=== PATIENT | male | born 1955 | race Caucasian/White ===

== ENCOUNTER → 2023-04-12 11:35 | Outpatient (CLI) | payer OTHER, SELFPAY ==
[2023-04-12 12:30] LABS: D Dimer 569 ng/ml (<500)
== END ==
PROVIDERS: Referring Provider Physician Assistant; Visit Provider Physician Assistant
DX: M79.604 Pain in right leg (principal)
CPT/HCPCS: 36415; 85379

== ENCOUNTER → 2023-04-13 09:08 | Outpatient (CLI) | payer OTHER, SELFPAY ==
--- NOTE | 2023-04-13 09:10 | DI.US.S_ITS ---
PROCEDURE: US PERIPH VENOUS LOW EXTREM RT INDICATIONS: Pain in right leg TECHNIQUE: Real-time imaging, as well as color and pulse Doppler interrogation, were performed of the lower extremity deep veins from the inguinal ligament to the popliteal fossa. COMPARISON: None. FINDINGS: The common femoral, femoral and popliteal veins are normally compressible, and free of intraluminal thrombus. Color and pulse Doppler demonstrate normal phasic intraluminal flow. There is normal augmentation response to distal compression maneuver. IMPRESSION: No deep venous thrombosis. Dictated by: Julia Doyle M.D. on 04/13/2023 at 11:35 Approved by: Julia Doyle M.D. on 04/13/2023 at 11:36
== END ==
PROVIDERS: PCP Internal Medicine; Referring Provider Physician Assistant; Visit Provider Physician Assistant
DX: M79.604 Pain in right leg (principal)
CPT/HCPCS: 93971

== ENCOUNTER 2023-04-25 09:27 | Observation (INO) | payer OTHER, SELFPAY ==
[2023-04-25] VITALS (20 sets, daily range): BP systolic 129–174; BP diastolic 70–97; PULSE 72–84; RESP 13–24; TEMP 36.8–37.3; O2SAT 94–97; BMI 31.2
--- NOTE | 2023-04-25 10:00 | DI.CT.S_ITS ---
PROCEDURE: CT ANGIO CHEST PE PROTOCOL INDICATIONS: Right-sided chest pain hemoptysis TECHNIQUE: After the administration of intravenous contrast, 2 mm thick sections acquired from the pulmonary apices to the posterior costophrenic angles. 3-dimensional maximum intensity projection (MIP) coronal and sagittal reformats were then acquired through the thorax. For radiation dose reduction, the following was used: automated exposure control, adjustment of mA and/or kV according to patient size. COMPARISON: [facility], , [facility] VENOUS LOW EXTREM RT, 04/13/2023, 9:22. FINDINGS: Image quality: Excellent. Pulmonary arteries: Pulmonary arteries are prominent in size measuring 3.6 cm. There are intraluminal filling defects involving the right lower lobe main and segmental arteries, and the left lower lobe segmental arteries consistent with pulmonary embolism. Lungs and pleura: Small right pleural effusion. There is right lower lobe infiltrate and consolidation, suspicious for pulmonary infarct. No pleural effusions or pneumothorax. Central and peripheral airways are patent. Mediastinum: Heart is mildly enlarged. No pericardial effusion. Mild coronary artery calcification. No findings to suggest right heart strain. No mediastinal or hilar adenopathy. Thoracic aorta is normal in caliber and enhancement. Esophagus is normal in caliber. Small hiatal hernia. Bones and chest wall: No suspicious bony lesions. Ribs and thoracic spine appear intact throughout. Thyroid gland is unremarkable. No axillary or supraclavicular adenopathy. Abdomen: Moderate hepatic steatosis. IMPRESSION: 1. Bilateral pulmonary emboli. 2. No findings to suggest right heart strain. 3. Right lower lobe infiltrate and consolidation with small right pleural effusion, suspicious for pulmonary infarct. A differential diagnosis is right lower lobe pneumonia. 4. Mild cardiomegaly. 5. Mild coronary artery calcification. 6. Small hiatal hernia. 7. Moderate hepatic steatosis. The result was discussed with Dr. Corral. Dictated by: Kaylee Gilliland M.D. on 04/25/2023 at 12:07 Approved by: Kaylee Gilliland M.D. on 04/25/2023 at 12:14
[2023-04-25 10:02] LABS: Add Manual Diff / Slide Review NO; Basophils Absolute Auto 100 /uL (0-100); Basophils Percent Auto 0.7 % (0-2); Eosinophils Absolute Auto 300 /uL (0-450); Eosinophils Percent Auto 2.3 % (2-4); Hematocrit 40.9 % (41-53); Hemoglobin 14.2 g/dL (13.5-17.5); Lymphocytes Absolute Auto 1800 /uL (1100-4500); Lymphocytes Percent Auto 15.3 % (25-40); Mean Corpuscular HGB Conc 34.6 % (30-36); Mean Corpuscular Hemoglobin 30.1 PG (26-34); Mean Corpuscular Volume 86.8 fL (80-100); Monocytes Absolute Auto 1100 /uL (0-900); Monocytes Percent Auto 9.3 % (3-14); Neutrophils Absolute Auto 8400 /uL (1500-7000); Neutrophils Percent Auto 72.4 % (50-75); Platelet Count 243 X10^3/uL (150-400); Red Blood Cell Count 4.71 X10^6/uL (4.5-5.9); Red Cell Distribution Width 13.3 % (11.6-14.8); White Blood Cell Count 11.6 X10^3/uL (4.5-11.0)
[2023-04-25 10:14] LABS: INR 1.2 (0.9-1.3); Prothrombin Time 13.6 SECONDS (10.1-12.7)
[2023-04-25 10:17] LABS: Lactate (Lactic Acid) 0.9 mmol/L (0.7-2.1)
[2023-04-25 10:19] LABS: Alanine Aminotransferase 65 IU/L (<50); Albumin 4.3 g/dL (3.5-5.0); Albumin Globulin Ratio 1.1 (1.0-2.8); Alkaline Phosphatase 86 U/L (38-126); Aspartate Aminotransferase 46 IU/L (17-59); BUN Creatinine Ratio 22.2 (6-22); Bilirubin Total 1.4 mg/dL (0.2-1.3); Blood Urea Nitrogen 22 mg/dL (9-20); Calcium 9.1 mg/dL (8.4-10.2); Carbon Dioxide 26 mmol/L (22-32); Chloride 100 mmol/L (98-107); Estimated Glomerular Filt Rate > 60 mL/min (>60); Globulin 3.9 g/dL (1.7-4.1); Glucose 97 mg/dL (80-110); HEMOLYSIS 19 (0-50); Potassium 4.1 mmol/L (3.4-5.1); Sodium 135 mmol/L (137-145); Total Protein 8.2 g/dL (6.3-8.2)
--- NOTE | 2023-04-25 10:28 | ED_ITS ---
HPI - Chest Pain General Chief Complaint: Shortness of Breath/Dyspnea Stated Complaint: cough up blood, chest pain, night sweats,sob Time Seen by Provider: 04/25/23 09:46 Source: patient Mode of arrival: Ambulatory Limitations: no limitations History of Present Illness HPI narrative: Patient brought self here for complaints of right-sided chest pain with hemoptysis. Patient returned from [place] after doing cardiac expedition, he usually does not do kayaking. Sunday night he felt right-sided chest discomfort . Had clear sputum with coughing. However it transitioned to pink sputum and this morning had some blood in it. Denies any left-sided chest pain. Had some tingling to the fingers both sides on Sunday which has not returned, it was very brief. Patient denies any back pain. No prior history of blood clots in legs or lungs. No aortic aneurysm or dissection. Patient denies any syncope. Has had fever and chills. He did fly to [place] and did fly back. Unknown sick contacts. Patient in no distress. No history of heart attack strokes or diabetes. Is not on any blood thinners. Denies denies any hematemesis. No abdominal pain. Related Data Previous Rx's Medication Instructions Recorded apixaban 5 mg (74 tabs) tablets in See Rx Instructions PO .COMPLEX 04/25/23 a dose pack (Eliquis DVT-PE Treat #74 ea 30D Start) dabigatran etexilate 150 mg 150 mg PO BID #60 caps 04/25/23 capsule (Pradaxa) rivaroxaban 15 mg (42)-20 mg (9) See Rx Instructions PO .COMPLEX 04/25/23 tablets in a starter pack (Xarelto #51 ea DVT-PE Treatment 30-Day Starter) Allergies Allergy/AdvReac Type Severity Reaction Status Date / Time cyclobenzaprine AdvReac Mild Rash Verified 04/25/23 15:10 meloxicam AdvReac Mild Rash Verified 04/25/23 15:10 Review of Systems Review of Systems Narrative: GENERAL: negative chills, fatigue, malaise, fever, sweats. HEENT: negative sinus pain, ear pain, sore throat RESPIRATORY: negative dyspnea, cough, positive hemoptysis CARDIOVASCULAR: Positive chest pain, negative palpitations GASTROINTESTINAL: negative nausea, vomiting, abdominal pain : negative dysuria, frequency, hematuria MUSCULOSKELETAL: negative muscle or bony pain SKIN: negative rash, skin lesions NEUROLOGIC: negative weakness, numbness ROS Unobtainable: All systems reviewed & are unremarkable except as noted in HPI and below Patient History Social History household members: spouse and children Smoking Status: Unknown if ever smoked Smoking Status: Unknown if ever smoked alcohol intake frequency: holidays/special occasions only Substance Use Type: does not use Exam Narrative Exam Narrative: GENERAL: in no distress, not toxic not dyspneic HEAD: Normocephalic. EYES: Pupils equal round ENT: Mucous membranes moist. NECK: Trachea midline. CARDIOVASCULAR: Regular rate and rhythm without murmurs nontender right chest on palpation but has pain with deep breath on right lower anterior chest RESPIRATORY: Clear to auscultation. Breath sounds equal bilaterally. No wheezes, rales, or rhonchi. GASTROINTESTINAL: Abdomen soft, non-tender EXTREMITIES: No gross deformities. BACK: No flank tenderness. NEURO: AOx4. SKIN: Warm and dry PSYCH: Not anxious, is cooperative Initial Vital Signs Initial Vital Signs: Vital Signs Temperature 98.3 F 04/25/23 09:28 Pulse Rate 84 04/25/23 09:28 Respiratory Rate 13 04/25/23 09:28 Blood Pressure 174/95 H 04/25/23 09:28 Pulse Oximetry 96 04/25/23 09:28 Oxygen Delivery Method Room Air 04/25/23 09:28 Course Orders Ordered: Discontinued Medications Acetaminophen (Acetaminophen 325 Mg Tablet) 650 mg PO Q4H PRN PRN Reason: Fever/Mild Pain (1-3) Last Admin: 04/25/23 20:26 Dose: 650 mg Documented By: Apixaban (Apixaban 5 Mg Tablet) 10 mg PO BID ISSAC Stop: 05/01/23 21:01 Last Admin: 04/26/23 09:15 Dose: 10 mg Documented By: Admin: 04/25/23 20:27 Dose: 10 mg Documented By: Admin: 04/25/23 13:00 Dose: 10 mg Documented By: YEFRI Sodium Chloride (Normal Saline 0.9%) 500 mls @ 1,000 mls/hr IV BOLUS ONE Stop: 04/25/23 10:29 Last Infusion: 04/25/23 12:29 Dose: 0 mls/hr Documented By: YEFRI(2) Admin: 04/25/23 10:30 Dose: 1,000 mls/hr Documented By: YEFRI(2) Melatonin (Melatonin 3 Mg Tablet) 6 mg PO BEDTIME PRN PRN Reason: Insomnia Naloxone HCl (Naloxone 0.4 Mg/Ml Vial) 0.2 mg IV Q2MIN PRN PRN Reason: Opiate Reversal Ondansetron HCl (Ondansetron 4 Mg/2 Ml Inj) 4 mg IV Q8HR PRN PRN Reason: Nausea And Vomiting Oxycodone HCl (Oxycodone Ir 5 Mg Tablet) 5 mg PO Q4HR PRN PRN Reason: Pain, Moderate (4-6) Polyethylene Glycol (Polyethylene Glycol 3350 17 Gm Powd.Pack) 17 gm PO DAILY PRN PRN Reason: Constipation Sennosides (Sennosides 8.6 Mg Tablet) 8.6 mg PO BID PRN PRN Reason: Constipation Vital Signs Vital signs: Vital Signs - 8 hr 04/25/23 09:28 Temperature 98.3 F Pulse Rate 84 Respiratory Rate 13 Blood Pressure 174/95 H Pulse Oximetry 96 Oxygen Delivery Method Room Air MDM - Chest Pain Lab Data 04/26/23 05:05 04/26/23 05:05 Labs: Lab Results 04/25/23 04/25/23 04/25/23 Range/Units 09:53 09:53 09:53 WBC 11.6 H (4.5-11.0) X10^3/uL RBC 4.71 (4.5-5.9) X10^6/uL Hgb 14.2 (13.5-17.5) g/dL Hct 40.9 L (41-53) % MCV 86.8 (80-100) fL MCH 30.1 (26-34) PG MCHC 34.6 (30-36) % RDW 13.3 (11.6-14.8) % Plt Count 243 (150-400) X10^3/uL Neut % (Auto) 72.4 (50-75) % Lymph % (Auto) 15.3 L (25-40) % [place] % (Auto) 9.3 (3-14) % Eos % (Auto) 2.3 (2-4) % Baso % (Auto) 0.7 (0-2) % Neut # (Auto) 8400 H (3801-9132) /uL Lymph # (Auto) 1800 (7329-8101) /uL [place] # (Auto) 1100 H (0-900) /uL Eos # (Auto) 300 (0-450) /uL Baso # (Auto) 100 (0-100) /uL PT 13.6 H (10.1-12.7) SECONDS INR 1.2 (0.9-1.3) Sodium 135 L (137-145) mmol/L Potassium 4.1 (3.4-5.1) mmol/L Chloride 100 (98-107) mmol/L Carbon Dioxide 26 (22-32) mmol/L BUN 22 H (9-20) mg/dL Creatinine 0.99 (0.66-1.25) mg/dL Estimated GFR > 60 (>60) mL/min BUN/Creatinine Ratio 22.2 H (6-22) Glucose 97 (80-110) mg/dL Lactate (0.7-2.1) mmol/L Calcium 9.1 (8.4-10.2) mg/dL Magnesium (1.6-2.3) mg/dL Total Bilirubin 1.4 H (0.2-1.3) mg/dL AST 46 (17-59) IU/L ALT 65 H (<50) IU/L Alkaline Phosphatase 86 (38-126) U/L Troponin I < 0.012 (0.01-0.034) ng/mL NT-Pro-B Natriuret Pep 43 (<125) pg/mL Total Protein 8.2 (6.3-8.2) g/dL Albumin 4.3 (3.5-5.0) g/dL Globulin 3.9 (1.7-4.1) g/dL Albumin/Globulin Ratio 1.1 (1.0-2.8) Procalcitonin (<0.5) ng/mL Chlamy pneumoniae PCR (Not Detect) Adenovirus (PCR) (Not Detect) B. pertussis DNA (PCR) (Not Detecte) B.parapertussis DNA PCR (Not Detecte) Coronavirus OC43 (PCR) (Not Detect) Coronavirus HKU1 (PCR) (Not Detect) Coronavirus 229E (PCR) (Not Detect) SARS-CoV-2 (PCR) (Not Detecte) Coronavirus NL63 (PCR) (Not Detect) Human Metapneumovir PCR (Not Detect) Influenza Type A (PCR) (Not Detect) Influenza Type B (PCR) (Not Detect) M. pneumoniae (PCR) (Not Detect) Parainfluenza 1 (PCR) (Not Detect) Parainfluenza 2 (PCR) (Not Detect) Parainfluenza 3 (PCR) (Not Detect) Parainfluenza 4 (PCR) (Not Detect) RSV (PCR) (Not Detect) Entero/Rhino (PCR) (Not Detect) 04/25/23 04/25/23 04/25/23 Range/Units 09:53 09:53 09:53 WBC (4.5-11.0) X10^3/uL RBC (4.5-5.9) X10^6/uL Hgb (13.5-17.5) g/dL Hct (41-53) % MCV (80-100) fL MCH (26-34) PG MCHC (30-36) % RDW (11.6-14.8) % Plt Count (150-400) X10^3/uL Neut % (Auto) (50-75) % Lymph % (Auto) (25-40) % [place] % (Auto) (3-14) % Eos % (Auto) (2-4) % Baso % (Auto) (0-2) % Neut # (Auto) (7098-0296) /uL Lymph # (Auto) (2188-4243) /uL [place] # (Auto) (0-900) /uL Eos # (Auto) (0-450) /uL Baso # (Auto) (0-100) /uL PT (10.1-12.7) SECONDS INR (0.9-1.3) Sodium (137-145) mmol/L Potassium (3.4-5.1) mmol/L Chloride (98-107) mmol/L Carbon Dioxide (22-32) mmol/L BUN (9-20) mg/dL Creatinine (0.66-1.25) mg/dL Estimated GFR (>60) mL/min BUN/Creatinine Ratio (6-22) Glucose (80-110) mg/dL Lactate 0.9 (0.7-2.1) mmol/L Calcium (8.4-10.2) mg/dL Magnesium 2.4 H (1.6-2.3) mg/dL Total Bilirubin (0.2-1.3) mg/dL AST (17-59) IU/L ALT (<50) IU/L Alkaline Phosphatase (38-126) U/L Troponin I (0.01-0.034) ng/mL NT-Pro-B Natriuret Pep (<125) pg/mL Total Protein (6.3-8.2) g/dL Albumin (3.5-5.0) g/dL Globulin (1.7-4.1) g/dL Albumin/Globulin Ratio (1.0-2.8) Procalcitonin 0.11 (<0.5) ng/mL Chlamy pneumoniae PCR (Not Detect) Adenovirus (PCR) (Not Detect) B. pertussis DNA (PCR) (Not Detecte) B.parapertussis DNA PCR (Not Detecte) Coronavirus OC43 (PCR) (Not Detect) Coronavirus HKU1 (PCR) (Not Detect) Coronavirus 229E (PCR) (Not Detect) SARS-CoV-2 (PCR) (Not Detecte) Coronavirus NL63 (PCR) (Not Detect) Human Metapneumovir PCR (Not Detect) Influenza Type A (PCR) (Not Detect) Influenza Type B (PCR) (Not Detect) M. pneumoniae (PCR) (Not Detect) Parainfluenza 1 (PCR) (Not Detect) Parainfluenza 2 (PCR) (Not Detect) Parainfluenza 3 (PCR) (Not Detect) Parainfluenza 4 (PCR) (Not Detect) RSV (PCR) (Not Detect) Entero/Rhino (PCR) (Not Detect) 04/25/23 Range/Units 09:55 WBC (4.5-11.0) X10^3/uL RBC (4.5-5.9) X10^6/uL Hgb (13.5-17.5) g/dL Hct (41-53) % MCV (80-100) fL MCH (26-34) PG MCHC (30-36) % RDW (11.6-14.8) % Plt Count (150-400) X10^3/uL Neut % (Auto) (50-75) % Lymph % (Auto) (25-40) % [place] % (Auto) (3-14) % Eos % (Auto) (2-4) % Baso % (Auto) (0-2) % Neut # (Auto) (3934-0243) /uL Lymph # (Auto) (5876-6393) /uL [place] # (Auto) (0-900) /uL Eos # (Auto) (0-450) /uL Baso # (Auto) (0-100) /uL PT (10.1-12.7) SECONDS INR (0.9-1.3) Sodium (137-145) mmol/L Potassium (3.4-5.1) mmol/L Chloride (98-107) mmol/L Carbon Dioxide (22-32) mmol/L BUN (9-20) mg/dL Creatinine (0.66-1.25) mg/dL Estimated GFR (>60) mL/min BUN/Creatinine Ratio (6-22) Glucose (80-110) mg/dL Lactate (0.7-2.1) mmol/L Calcium (8.4-10.2) mg/dL Magnesium (1.6-2.3) mg/dL Total Bilirubin (0.2-1.3) mg/dL AST (17-59) IU/L ALT (<50) IU/L Alkaline Phosphatase (38-126) U/L Troponin I (0.01-0.034) ng/mL NT-Pro-B Natriuret Pep (<125) pg/mL Total Protein (6.3-8.2) g/dL Albumin (3.5-5.0) g/dL Globulin (1.7-4.1) g/dL Albumin/Globulin Ratio (1.0-2.8) Procalcitonin (<0.5) ng/mL Chlamy pneumoniae PCR Not detected (Not Detect) Adenovirus (PCR) Not detected (Not Detect) B. pertussis DNA (PCR) Not detected (Not Detecte) B.parapertussis DNA PCR Not detected (Not Detecte) Coronavirus OC43 (PCR) Not detected (Not Detect) Coronavirus HKU1 (PCR) Not detected (Not Detect) Coronavirus 229E (PCR) Not detected (Not Detect) SARS-CoV-2 (PCR) Not detected (Not Detecte) Coronavirus NL63 (PCR) Not detected (Not Detect) Human Metapneumovir PCR Not detected (Not Detect) Influenza Type A (PCR) Not detected (Not Detect) Influenza Type B (PCR) Not detected (Not Detect) M. pneumoniae (PCR) Not detected (Not Detect) Parainfluenza 1 (PCR) Not detected (Not Detect) Parainfluenza 2 (PCR) Not detected (Not Detect) Parainfluenza 3 (PCR) Not detected (Not Detect) Parainfluenza 4 (PCR) Not detected (Not Detect) RSV (PCR) Not detected (Not Detect) Entero/Rhino (PCR) Not detected (Not Detect) Urine Dip Bedside Urine Glucose Negative Bedside Urine Bilirubin - Negative Bedside Urine Ketone + 15 Urine Specific [place] 1.025 Bedside Urine Occult Blood - Negative Bedside Urine pH 6.0 Bedside Urine Protein - Negative Bedside Urine Urobilinogen - Negative Bedside Urine Nitrite - Negative Bedside Urine Leukocytes - Negative Esterase Imaging Data CT scan - chest: Radiologist's Impression: [address] [address] [address] Scan Report Signed Patient: Henry Bee MR#: [id number] : 1955 Acct:[id number] Age/Sex: 67 / M Date of Service: 04/25/23 Loc: ED Accession Number: [id number] ?? Procedure: CT angio chest PE protocol Ordering Provider: Johnathan Corarl MD PROCEDURE:? CT ANGIO CHEST PE PROTOCOL ? INDICATIONS:? Right-sided chest pain hemoptysis ? TECHNIQUE:? After the administration of intravenous contrast, 2 mm thick sections acquired from the pulmonary apices to the posterior costophrenic angles.? 3-dimensional maximum intensity projection (MIP) coronal and sagittal reformats were then acquired through the thorax.? For radiation dose reduction, the following was used:? automated exposure control, adjustment of mA and/or kV according to patient size.? ? COMPARISON:? [facility], , PERIP VENOUS LOW EXTREM RT, 04/13/2023, 9:22. ? FINDINGS:? Image quality:? Excellent.? ? Pulmonary arteries:? Pulmonary arteries are prominent in size measuring 3.6 cm.? There are intraluminal filling defects involving the right lower lobe main and segmental arteries, and the left lower lobe segmental arteries consistent with pulmonary embolism.? ? ? Lungs and pleura:? Small right pleural effusion.? There is right lower lobe infiltrate and consolidation, suspicious for pulmonary infarct.? No pleural effusions or pneumothorax.? Central and peripheral airways are patent.? ? Mediastinum:? Heart is mildly enlarged.? No pericardial effusion.? Mild coronary artery calcification.? No findings to suggest right heart strain.? No mediastinal or hilar adenopathy.? Thoracic aorta is normal in caliber and enhancement.? Esophagus is normal in caliber.? Small hiatal hernia.? ? Bones and chest wall:? No suspicious bony lesions.? Ribs and thoracic spine appear intact throughout.? Thyroid gland is unremarkable.? No axillary or supraclavicular adenopathy.? ? Abdomen:? Moderate hepatic steatosis.? ? IMPRESSION:? ? 1. Bilateral pulmonary emboli.? 2. No findings to suggest right heart strain. 3. Right lower lobe infiltrate and consolidation with small right pleural effusion, suspicious for pulmonary infarct.? A differential diagnosis is right lower lobe pneumonia. 4. Mild cardiomegaly.? 5. Mild coronary artery calcification. 6. Small hiatal hernia. 7. Moderate hepatic steatosis.? ? The result was discussed with Dr. Corral. ? Dictated by: Kaylee Gilliland M.D. on 04/25/2023 at 12:07 ? ? Approved by: Kaylee Gilliland M.D. on 04/25/2023 at 12:14 ? [facility] Narrative Medical decision making narrative: Patient brought self here for complaints of right-sided chest pain with hemoptysis. Patient returned from [place] after doing cardiac expedition, he usually does not do kayaking. Sunday night he felt right-sided chest discomfort. Had clear sputum with coughing. However it transitioned to pink sputum and this morning had some blood in it. Denies any left-sided chest pain. Had some tingling to the fingers both sides on Sunday which has not returned, it was very brief. Patient denies any back pain. No prior history of blood clots in legs or lungs. No aortic aneurysm or dissection. Patient denies any syncope. Has had fever and chills. He did fly to [place] and did fly back. Unknown sick contacts. Patient in no distress. No history of heart attack strokes or diabetes. Is not on any blood thinners. Denies denies any hematemesis. No abdominal pain. After history and exam CBC CMP troponin EKG CT chest PT PTT normal saline viral swab [facility] CC: Hemoptysis Complicating co-morbidities: Recent travel Data collected from: Patient Medical records reviewed: No previous visits for this complaint Differential considered: Includes but not limited to pulmonary embolism pneumonia bronchitis viral infection aortic dissection aneurysm neoplasm Exam documented above, pertinent findings include: Pleuritic chest pain with deep breath on the right Lab Test results independently reviewed as above. Pertinent findings: WBC 11.6 hemoglobin 14.2 hematocrit 40.9 platelets of 243 INR 1.2 D-dimer 569 sodium 135 BUN 22 creatinine 0.99 Independently reviewed EKG normal EKG normal sinus rhythm rate 76 Imaging studies independently reviewed: CT PE protocol shows bilateral pulmonary embolism Consultations: 12:[address] Grijalva, hospitalist, he will admit patient and start anticoagulation Treatments: Normal saline Re-evaluations: 12:00 p.m.. Reviewed with patient results. He does agree admission for treatment for pulmonary embolism. He now states that he does recall going to [place] beginning of this month. It was an [address] He did have ultrasound of the leg recently with no DVT seen. Currently no chest pain. Discussion: Appropriate for admission for bilateral pulmonary embolisms. Patient agrees with treatment plan. Spoke with hospitalist agrees for admission Diagnosis: Bilateral pulmonary embolism Discharge Plan Departure Patient Disposition: Admitted as Observation Clinical Impression: Pulmonary embolism Admit Date/Time: 04/25/23 12:28 Admit Provider: Keaton Grijalva
[2023-04-25 10:30] LABS: NT-proBNP (BNP-Adult 18+) 43 pg/mL (<125); Troponin I < 0.012 ng/mL (0.01-0.034)
[2023-04-25] MEDS: SODIUM CHLORIDE 0.9% 500 ML 1000 ML IV (10:30)
[2023-04-25 10:57] LABS: Adenovirus Not Detected (Not Detect); B. parapertussis Not Detected (Not Detecte); Bordetella pertussis Not Detected (Not Detecte); Chlamydophila pneumoniae Not Detected (Not Detect); Coronavirus 229E Not Detected (Not Detect); Coronavirus HKU1 Not Detected (Not Detect); Coronavirus NL 63 Not Detected (Not Detect); Coronavirus OC43 Not Detected (Not Detect); Human Metapneumovirus Not Detected (Not Detect); Human Rhinovirus/Enterovirus Not Detected (Not Detect); Influenza A Not Detected (Not Detect); Influenza B Not Detected (Not Detect); Mycoplasma pneumoniae Not Detected (Not Detect); Parainfluenza Virus 1 Not Detected (Not Detect); Parainfluenza Virus 2 Not Detected (Not Detect); Parainfluenza Virus 3 Not Detected (Not Detect); Parainfluenza Virus 4 Not Detected (Not Detect); Respiratory Syncytial Virus Not Detected (Not Detect); SARS- CoV-2 Not Detected (Not Detecte)
--- NOTE | 2023-04-25 12:40 | DI.ECHO.S_ITS ---
[facility]---------+ [facility] +---------+ : : [address] [place] : : : : [id number] : : : : Phone: [phone] Echocardiogram Report + + :Name: DINA RICHARD Study Date: 04/26/2023 Height: 75 in : :[facility] ReadingLocation: Weight: 250 lb : : Gender: Male BSA: 2.4 m2 : :: 1955 Age: 67 yrs BP: 174/95 mmHg: :Reason For Study: BILATERAL PE, LOOK FOR RIGHT HEART STRAIN : :Ordering Physician: AIDA, : :MARIAA Colón Performed By: Khushbu Ward : :Referring: MARIAA PARRA : + + Interpretation Summary The ejection fraction is estimated to be 55-60%. Diastolic parameters suggest probable normal left ventricular diastolic function and normal filling pressures. The right ventricle is normal in size and function. No significant valvular abnormalities. Pulmonary artery pressures cannot be estimated because of the lack of a measurable TR jet velocity. Procedure: A two-dimensional transthoracic echocardiogram with color flow and Doppler was performed. The study quality was technically adequate. There is no prior echocardiogram noted for this patient. The patient was in sinus rhythm with heart rates between 69-76 bpm during the exam. Left Ventricle: The left ventricle is normal in size and wall thickness. A false chord is noted (normal variant). The ejection fraction is estimated to be 55-60%. Diastolic parameters suggest probable normal left ventricular diastolic function and normal filling pressures. Right Ventricle: The right ventricle is normal in size and function. Atria: The left atrial size is normal. Right atrial size is normal. There is no Doppler evidence for an interatrial shunt. Mitral Valve: The mitral valve is normal in structure and function. There is trace mitral regurgitation. Aortic Valve: The aortic valve is trileaflet. The aortic valve opens well. There is no aortic valve stenosis. No aortic regurgitation is present. Tricuspid Valve: The tricuspid valve is normal in structure and function. There is trace tricuspid regurgitation. Pulmonary artery pressures cannot be estimated because of the lack of a measurable TR jet velocity. Pulmonic Valve: The pulmonic valve is not well visualized. There is no pulmonic valvular regurgitation. Great Vessels: The aortic root is normal size. The dimensions of the ascending aorta are normal. The IVC is of normal diameter and collapses greater than 50% with a sniff. This suggests a low right atrial pressure of 3 mm Hg. Pericardium/ Pleura There is no pericardial effusion. There is no pleural effusion. MMode/2D Measurements & Calculations LVIDd: 5.1 cm LVOT diam: 2.3 cm LVIDs: 3.7 cm Ao root diam: 3.7 cm FS: 26.7 % asc Aorta Diam: 3.4 cm IVSd: 1.0 cm LVPWd: 1.0 cm LV apple. diameter/BSA (cm/m^2): 2.1 LV sys. diameter/BSA (cm/m^2): 1.5 LA A2 area: 18.5 cm2 RA long axis: 5.1 cm LA A4 area: 17.4 cm2 RA area: 16.1 cm2 LA length (vol): 5.1 cm RA vol: 43.0 ml LA vol: 53.9 ml RA : 17.8 ml/m2 LA vol index: 22.3 ml/m2 IVC diam: 1.4 cm RVD1 (basal): 3.0 cm RVD2 (mid): 2.5 cm TAPSE: 2.7 cm Doppler Measurements & Calculations Ao V2 max: 128.3 cm/sec LVOT Max Kip: 105.7 cm/sec Ao V2 mean: 94.8 cm/sec LV V1 max P.5 mmHg Ao max P.6 mmHg LV V1 VTI: 21.8 cm Ao mean P.9 mmHg TATY(I,D): 3.0 cm2 Ao V2 VTI: 29.6 cm TATY(V,D): 3.4 cm2 sev ratio: 0.74 TATY indexed to BSA (cm^2/m^2): 1.2 MV E max kip: 60.2 cm/sec PA V2 max: 92.2 cm/sec MV A max kip: 77.1 cm/sec PA V2 mean: 67.9 cm/sec MV E/A: 0.78 PA mean P.0 mmHg Med Peak E' Kip: 8.1 cm/sec PA pr(Accel): 31.0 mmHg E/E' med: 7.5 Lat Peak E' Kip: 11.3 cm/sec E/E' lat: 5.3 E/e' average: 6.4 MV dec time: 0.24 sec SV(LVOT): 89.2 ml Reading Physician:08:55 AM
[2023-04-25] MEDS: APIXABAN 5 MG TABLET 10 MG PO ×2 (13:00→20:27)
[2023-04-25 13:06] LABS: Magnesium 2.4 mg/dL (1.6-2.3)
--- NOTE | 2023-04-25 13:09 | P.HP_ITS ---
History of Present Illness History of Present Illness Date Patient Seen: 04/25/23 Time Patient Seen: 14:47 Chief complaint: cough up blood, chest pain, night sweats,sob Narrative: Henry Bee is a 67-year-old male with PMH of HLD, right foot frostbite s/p toe amputations who presents with pleuritic chest pain and hemoptysis. Patient states about 2 weeks ago he took an [address] to [place], [place] and shortly after developed some sharp pain in his right ankle so was placed on prednisone for presumed gout attack. The pain then worsened into his right calf so he went to the walk-in clinic and had a dimer checked which was elevated so a DVT US was done which was normal. His pain improved and eventually went away. He then took a long plane trip to [place] to do a kayaking expedition and noticed he had profound SOB. He returned home and then developed right-sided pleuritic CP worse with deep breaths. He had some frothy pink sputum so came to the ED. In the ED patient's CTA chest showed bilateral PE with pulm infarct in right lower lobe adjacent to patient's pleuritic CP. PESI score of 0. Not requiring supp O2. He currently states he doesn't feel SOB at rest, but more with exertion. He still has pleuritic CP with deep breaths. [facility] Social History Smoking Status: Unknown if ever smoked Meds Home Medications and Allergies Allergies Allergy/AdvReac Type Severity Reaction Status Date / Time cyclobenzaprine AdvReac Mild Rash Verified 04/25/23 15:10 meloxicam AdvReac Mild Rash Verified 04/25/23 15:10 Review of Systems Review of Systems Narrative: All other systems reviewed with the patient and are negative unless otherwise stated. Exam Vital Signs (past 8 hours): - 04/25/23 09:28 Temperature 98.3 F Pulse Rate 84 Respiratory Rate 13 Blood Pressure 174/95 H Pulse Oximetry 96 Oxygen Delivery Method Room Air Oxygen Delivery Method Room Air Narrative Exam Narrative: GEN: no acute distress HEENT: moist mucous membranes, PERRL NECK: trachea midline, no JVD CV: regular rate and rhythm, no murmurs PULM: clear bilaterally ABD: soft, nontender, nondistended, no organomegaly EXT: warm and well perfused with no edema, R foot with missing toes NEURO: awake, alert, oriented, no focal deficits Objective Labs 04/25/23 09:53 04/25/23 09:53 Labs: Laboratory Results - last 24 hr 04/25/23 04/25/23 04/25/23 09:53 09:53 09:53 WBC 11.6 H RBC 4.71 Hgb 14.2 Hct 40.9 L MCV 86.8 MCH 30.1 MCHC 34.6 RDW 13.3 Plt Count 243 Neut % (Auto) 72.4 Lymph % (Auto) 15.3 L Collin % (Auto) 9.3 Eos % (Auto) 2.3 Baso % (Auto) 0.7 Neut # (Auto) 8400 H Lymph # (Auto) 1800 [place]lin # (Auto) 1100 H Eos # (Auto) 300 Baso # (Auto) 100 PT 13.6 H INR 1.2 Sodium 135 L Potassium 4.1 Chloride 100 Carbon Dioxide 26 BUN 22 H Creatinine 0.99 Estimated GFR > 60 BUN/Creatinine Ratio 22.2 H Glucose 97 Lactate Calcium 9.1 Total Bilirubin 1.4 H AST 46 ALT 65 H Alkaline Phosphatase 86 Troponin I < 0.012 NT-Pro-B Natriuret Pep 43 Total Protein 8.2 Albumin 4.3 Globulin 3.9 Albumin/Globulin Ratio 1.1 Chlamy pneumoniae PCR Adenovirus (PCR) B. pertussis DNA (PCR) B.parapertussis DNA PCR Coronavirus OC43 (PCR) Coronavirus HKU1 (PCR) Coronavirus 229E (PCR) SARS-CoV-2 (PCR) Coronavirus NL63 (PCR) Human Metapneumovir PCR Influenza Type A (PCR) Influenza Type B (PCR) M. pneumoniae (PCR) Parainfluenza 1 (PCR) Parainfluenza 2 (PCR) Parainfluenza 3 (PCR) Parainfluenza 4 (PCR) RSV (PCR) Entero/Rhino (PCR) 04/25/23 04/25/23 09:53 09:55 WBC RBC Hgb Hct MCV MCH MCHC RDW Plt Count Neut % (Auto) Lymph % (Auto) Collin % (Auto) Eos % (Auto) Baso % (Auto) Neut # (Auto) Lymph # (Auto) Collin # (Auto) Eos # (Auto) Baso # (Auto) PT INR Sodium Potassium Chloride Carbon Dioxide BUN Creatinine Estimated GFR BUN/Creatinine Ratio Glucose Lactate 0.9 Calcium Total Bilirubin AST ALT Alkaline Phosphatase Troponin I NT-Pro-B Natriuret Pep Total Protein Albumin Globulin Albumin/Globulin Ratio Chlamy pneumoniae PCR Not detected Adenovirus (PCR) Not detected B. pertussis DNA (PCR) Not detected B.parapertussis DNA PCR Not detected Coronavirus OC43 (PCR) Not detected Coronavirus HKU1 (PCR) Not detected Coronavirus 229E (PCR) Not detected SARS-CoV-2 (PCR) Not detected Coronavirus NL63 (PCR) Not detected Human Metapneumovir PCR Not detected Influenza Type A (PCR) Not detected Influenza Type B (PCR) Not detected M. pneumoniae (PCR) Not detected Parainfluenza 1 (PCR) Not detected Parainfluenza 2 (PCR) Not detected Parainfluenza 3 (PCR) Not detected Parainfluenza 4 (PCR) Not detected RSV (PCR) Not detected Entero/Rhino (PCR) Not detected Assessment & Plan Assessment & Plan narrative: # acute provoked bilateral pulmonary embolism -CTA chest with clots in bilateral lower lobes, no R heart strain -likely developed during recent long plane ride -start eliquis 10mg BID x1 week, then 5mg BID for 6 months -check echo -q4h pulse ox checks # pleuritic chest pain -due to pulm infarct, trop normal -oxy PRN # possible pneumonia vs pulmonary infarct -WBC 11.6, afebrile and without productive cough -check procal -monitor for signs of infection # elevated BP without diagnosis of HTN -BP of 174/95 in ED -monitor and consider treatment of HTN if persistently elevated # HLD, elevated LFT -check lipid panel -hold home statin with elevated ALT of 65, possibly due to hepatotoxicity from statin -f/u with PCP to recheck liver enzymes and discuss statin cessation # recent possible gout attack -had severe right ankle pain which improved with po prednisone -check uric acid Code status is full code. DVT prophylaxis with Eliquis. Proxy is Lety. I have reviewed home meds and used all available resources to reconcile the home meds. This patient will be admitted as observation and will require less than 2 midnights of hospital time to treat pulmonary embolism.
[2023-04-25 13:24] LABS: Procalcitonin 0.11 ng/mL (<0.5)
[2023-04-25] MEDS: ACETAMINOPHEN 325 MG TABLET 650 MG PO (20:26)
[2023-04-26 00:01] VITALS: BP 132/90; PULSE 70; RESP 18; TEMP 36.6; O2SAT 94
[2023-04-26 01:00] VITALS: O2SAT 94
[2023-04-26 04:10] VITALS: BP 145/83; PULSE 87; RESP 16; TEMP 36.9; O2SAT 94
[2023-04-26 05:00] VITALS: O2SAT 94
[2023-04-26 06:06] LABS: Add Manual Diff / Slide Review NO; Basophils Absolute Auto 100 /uL (0-100); Basophils Percent Auto 0.7 % (0-2); Eosinophils Absolute Auto 400 /uL (0-450); Eosinophils Percent Auto 3.5 % (2-4); Hematocrit 38.8 % (41-53); Hemoglobin 13.4 g/dL (13.5-17.5); Lymphocytes Absolute Auto 1800 /uL (1100-4500); Lymphocytes Percent Auto 17.2 % (25-40); Mean Corpuscular HGB Conc 34.5 % (30-36); Mean Corpuscular Hemoglobin 29.7 PG (26-34); Mean Corpuscular Volume 86.2 fL (80-100); Monocytes Absolute Auto 800 /uL (0-900); Neutrophils Absolute Auto 7200 /uL (1500-7000); Neutrophils Percent Auto 70.6 % (50-75); Platelet Count 251 X10^3/uL (150-400); Red Cell Distribution Width 13.4 % (11.6-14.8); White Blood Cell Count 10.2 X10^3/uL (4.5-11.0)
[2023-04-26 06:09] LABS: Uric Acid 8.3 mg/dL (3.5-8.5)
[2023-04-26 06:11] LABS: Cholesterol 233 mg/dL (140-199); HDL Cholesterol 40 mg/dL (40-60); LDL Cholesterol Calculated 168 mg/dL (<100); Triglycerides 127 mg/dL (35-150)
[2023-04-26 06:12] LABS: BUN Creatinine Ratio 18.8 (6-22); Blood Urea Nitrogen 16 mg/dL (9-20); Calcium 8.4 mg/dL (8.4-10.2); Carbon Dioxide 22 mmol/L (22-32); Chloride 99 mmol/L (98-107); Estimated Glomerular Filt Rate > 60 mL/min (>60); Glucose 100 mg/dL (80-110); HEMOLYSIS < 15 (0-50); Potassium 3.9 mmol/L (3.4-5.1); Sodium 130 mmol/L (137-145)
[2023-04-26 08:00] VITALS: BP 117/78; PULSE 67; RESP 16; TEMP 37.1; O2SAT 93
[2023-04-26 09:00] VITALS: O2SAT 97
[2023-04-26] MEDS: APIXABAN 5 MG TABLET 10 MG PO (09:15)
--- NOTE | 2023-04-26 13:09 | PM.DS.1 ---
History of Present Illness History of Present Illness Date Patient Seen: 04/26/23 Time Patient Seen: 13:09 Date of Onset of Symptoms: 04/24/23 Chief complaint: cough up blood, chest pain, night sweats,sob Narrative: From H&P: Hnery Bee is a 67-year-old male with PMH of HLD, right foot frostbite s/p toe amputations who presents with pleuritic chest pain and hemoptysis.? Patient states about 2 weeks ago he took an [address] to [place], [place] and shortly after developed some sharp pain in his right ankle so was placed on prednisone for presumed gout attack.? The pain then worsened into his right calf so he went to the walk-in clinic and had a dimer checked which was elevated so a DVT US was done which was normal. His pain improved and eventually went away. He then took a long plane trip to [place] to do a kayaking expedition and noticed he had profound SOB. He returned home and then developed right-sided pleuritic CP worse with deep breaths. He had some frothy pink sputum so came to the ED. In the ED patient's CTA chest showed bilateral PE with pulm infarct in right lower lobe adjacent to patient's pleuritic CP. PESI score of 0. Not requiring supp O2. He currently states he doesn't feel SOB at rest, but more with exertion. He still has pleuritic CP with deep breaths. Discharge Providers Provider Date of admission: 04/25/23 12:28 Discharge Date: 04/26/23 Primary care physician: Renard Clarke MD Consults: None Discharge provider: Dominik Rodriguez MD Summary Hospital Course Discharge Diagnosis: 1. Pulmonary embolism. Hospital Course: Patient admitted for observation of respiratory status and pain with acute pulmonary embolism. He did well over night and remained off O2. He had good pain control and a reassuring ECHO. He was stable for discharge, Status at Discharge Cognitive/behavioral status at discharge: oriented Functional status at discharge: independent ambulation Overall status at discharge: patient is back to baseline Time Spent with Patient Time spent: Greater than 30 minutes Exam Vital Signs (past 8 hours): - 04/26/23 08:00 04/26/23 09:00 Temperature 98.8 F Pulse Rate 67 Respiratory Rate 16 Blood Pressure 117/78 Pulse Oximetry 93 97 Oxygen Delivery Method Room Air Oxygen Flow Rate 0 0 Oxygen Delivery Method Room Air Oxygen Flow Rate 0 Narrative Exam Narrative: NAD Normal speech Lungs are clear Heart is regular Abdomen is soft No leg edema Objective ECG Impression: NSR Imaging CT scan - chest: Radiologist's impression: 1. Bilateral pulmonary emboli.? 2. No findings to suggest right heart strain. 3. Right lower lobe infiltrate and consolidation with small right pleural effusion, suspicious for pulmonary infarct.? A differential diagnosis is right lower lobe pneumonia. 4. Mild cardiomegaly.? 5. Mild coronary artery calcification. 6. Small hiatal hernia. 7. Moderate hepatic steatosis.? Echo: Radiologist's impression: The ejection fraction is estimated to be 55-60%. Diastolic parameters suggest probable normal left ventricular diastolic function and normal filling pressures. The right ventricle is normal in size and function. No significant valvular abnormalities. Pulmonary artery pressures cannot be estimated because of the lack of a measurable TR jet velocity. Venous US: Radiologist's impression: IMPRESSION:? No deep venous thrombosis. Labs 04/26/23 05:05 04/26/23 05:05 Labs: Laboratory Results - last 24 hr 04/25/23 04/25/23 04/26/23 09:53 09:53 05:05 WBC RBC Hgb Hct MCV MCH MCHC RDW Plt Count Neut % (Auto) Lymph % (Auto) [place] % (Auto) Eos % (Auto) Baso % (Auto) Neut # (Auto) Lymph # (Auto) [place] # (Auto) Eos # (Auto) Baso # (Auto) Sodium Potassium Chloride Carbon Dioxide BUN Creatinine Estimated GFR BUN/Creatinine Ratio Glucose Uric Acid 8.3 Calcium Magnesium 2.4 H Triglycerides Cholesterol LDL Cholesterol, Calc HDL Cholesterol Procalcitonin 0.11 04/26/23 04/26/23 04/26/23 05:05 05:05 05:05 WBC 10.2 RBC 4.50 Hgb 13.4 L Hct 38.8 L MCV 86.2 MCH 29.7 MCHC 34.5 RDW 13.4 Plt Count 251 Neut % (Auto) 70.6 Lymph % (Auto) 17.2 L [place] % (Auto) 8.0 Eos % (Auto) 3.5 Baso % (Auto) 0.7 Neut # (Auto) 7200 H Lymph # (Auto) 1800 [place] # (Auto) 800 Eos # (Auto) 400 Baso # (Auto) 100 Sodium 130 L Potassium 3.9 Chloride 99 Carbon Dioxide 22 BUN 16 Creatinine 0.85 Estimated GFR > 60 BUN/Creatinine Ratio 18.8 Glucose 100 Uric Acid Calcium 8.4 Magnesium Triglycerides 127 Cholesterol 233 H LDL Cholesterol, Calc 168 H HDL Cholesterol 40 Procalcitonin [facility] Social History household members: spouse and children Smoking Status: Unknown if ever smoked Discharge Assessment & Plan Assessment and Plan Assessment: 1. Pulmonary embolism, POAI. 2. Pulmonary infarct, POAI. 3. HLD, POAS 4. Gout, POA. Plan of Treatment: Discharge with Apixiban 10 BID 1 week and 5 BID thereafter. PCP within 1 week Discharge Plan Discharge Plan Patient Disposition: Home Provider Discharge Comment: Stable for discharge Discharge orders & Medications Prescriptions: New Eliquis DVT-PE Treat 30D Start 5 mg (74 tabs) tablets,dose pack See Rx Instructions .ROUTE .COMPLEX Qty: 74 0RF Rx Instructions: orally per package directions Xarelto DVT-PE Treat 30d Start 15 mg (42)- 20 mg (9) tablets,dose pack See Rx Instructions .ROUTE .COMPLEX Qty: 51 0RF Rx Instructions: take one-15 mg tablet twice daily for 21 days, then one-20 mg tablet once daily; must take with meal/food dabigatran etexilate [Pradaxa] 150 mg capsule 150 mg PO BID Qty: 60 0RF Medication counseling provided by Pharmacist: No Follow up/Referrals: Renard Clarke MD [Primary Care Provider] - 05/03/23 2:30 pm (Appt: 05/03 @ 2:[address] Clarke please arrive 15 min prior to scheduled appointment time) Diet/Activity/Treatments Diet: Diet as Tolerated Diet comment: Regular Activity: Ad pio. Skin/Wound/Dressing Care Report to your healthcare provider any signs of infection, such as:: increased pain Visit Report/Discharge Packet Stand Alone Forms: Patient Portal/API Discharge Data Primary Care Provider: Renard Clarke V Attending Provider: Keaton Grijalva Admit Date/Time: 04/25/23 12:28 Discharges patient from system. Discharge Date/Time: 04/26/23 11:48 Quality MIPS - DC The patient has current or prior documentation of left ventricular ejection fraction (LVEF) less than or equal to 40%, or moderate or severely depressed left ventricular systolic function.: No
--- NOTE | 2023-04-26 14:17 | CM.DANOTE ---
Patient is a 67 yo male who was admitted on 04/25/23 for Bilateral PE and possible pneumonia. Pt has [facility] for insurance and his PCP is Dr. Renard Clarke. EMR was reviewed. Per MD, pt with a hx of mondragon bite and toe amputations and admitted for PEs and r/o pneumonia. Per MD, Pt now medically stable to discharge home today with no needs and no identified barriers to discharge. Per RN, pt independent in room and no concerns noted at this time. Pt resides in [place] with his spouse and is very active and independent at baseline and travels regularly and participates in outdoor expeditions. Pt has no hx of HH or SNF and does not anticipate any needs at d/c. Plan: Patient to d/c home today via spouse POV and no further SW needs at this time. [facility] Discharge Planning/Care Management Advanced directive, confirm from FAMILY Start: 04/25/23 15:08 Freq: Q24H Status: Discharge Protocol: Document 04/25/23 15:08 LEILANI (Rec: 04/25/23 15:09 AKAdelina [id number]) Advance Directive, confirm on record Time 15:09 Person contacted patient to get e copy of form Copy received No
== END 2023-04-26 11:48 | disposition home or self-care (01) ==
LOC: ED 09:46 → AC 12:29
PROVIDERS: Admitting Provider Student in an Organized Health Care Education/Training Program; Emergency Provider Emergency Medicine; PCP Internal Medicine; Referring Provider Emergency Medicine; Visit Provider Student in an Organized Health Care Education/Training Program
DX: I26.99 Other pulmonary embolism without acute cor pulmonale (principal); R03.0 Elevated blood-pressure reading, without diagnosis of hypertension; E78.5 Hyperlipidemia, unspecified; Z20.822 Contact with and (suspected) exposure to COVID-19
CPT/HCPCS: 36415; 71275; 80048; 80053; 80061; 81003; 83605; 83735; 83880; 84145; 84484; 84550; 85025; 85610; 87633; 93005; 93306; 96360; 96361; 99284; G0378; Q9967

== ENCOUNTER → 2023-05-03 10:45 | Outpatient (CLI) | payer OTHER, SELFPAY ==
[2023-04-25 14:56] VITALS: BMI 31.2
[2023-05-03 13:01] LABS: TSH w/ Reflex to FT4 3.07 uIU/mL (0.47-4.68)
[2023-05-03 15:14] LABS: Prostate Specific Antigen 0.684 ng/mL (0.10-4.00)
[2023-05-06 09:59] LABS: Cardiolipin Ab IgG <9 GPL U/mL (0-14); Cardiolipin Ab IgM <9 MPL U/mL (0-12)
[2023-05-06 15:26] LABS: ANA Screen, IFA Negative (.)
[2023-05-07 01:06] LABS: Dil Russell Viper Venom Conf 1.1 ratio (0.8-1.2); Dilute Russell Viper Venom 78.6 sec (0.0-47.0); Dilute Russell Viper Venom Mix 58.4 sec (0.0-40.4); Hexagonal Phase Phospholipid 5 sec (0-11); Lupus Reflex Interpretation Comment: (.); PTT- LA Mix 41.4 sec (0.0-40.5); PTT-LA 45.2 sec (0.0-43.5)
== END ==
PROVIDERS: PCP Internal Medicine; Referring Provider Internal Medicine; Visit Provider Internal Medicine
DX: N40.0 Benign prostatic hyperplasia without lower urinary tract symptoms (principal); E78.2 Mixed hyperlipidemia; I26.99 Other pulmonary embolism without acute cor pulmonale; Z79.01 Long term (current) use of anticoagulants
CPT/HCPCS: 36415; 81240; 81241; 84153; 84443; 85598; 85613; 86038

== ENCOUNTER → 2023-05-04 12:21 | Outpatient (CLI) | payer OTHER, SELFPAY ==
[2023-04-25 14:56] VITALS: BMI 31.2
--- NOTE | 2023-05-04 12:22 | DI.US.S_ITS ---
PROCEDURE: US PERIPH VENOUS LOW EXTREM BI INDICATIONS: PULMONARY EMBOLISM TECHNIQUE: Real-time imaging, as well as color and pulse Doppler interrogation, were performed of the deep veins of both legs from the inguinal ligament to the popliteal fossa, with documentation of the visualized calf veins. COMPARISON: [facility], CT, CT ANGIO CHEST PE PROTOCOL, 04/25/2023, 11:16. FINDINGS: Right: The common femoral, femoral, popliteal, and the visualized calf veins are normally compressible, and free of intraluminal thrombus. Color and pulse Doppler demonstrate normal phasic intravascular flow. There is normal augmentation response to distal compression maneuver. Left: The common femoral, femoral, popliteal, and the visualized calf veins are normally compressible, and free of intraluminal thrombus. Color and pulse Doppler demonstrate normal phasic intravascular flow. There is normal augmentation response to distal compression maneuver. Note is made of venous stasis within both lower extremities, with spontaneous contrast. IMPRESSION: No findings of deep venous thrombosis in either lower extremity. However, venous stasis can be seen within both lower extremities. Dictated by: Edwar Hunt M.D. on 05/04/2023 at 12:12 Approved by: Edwar Hunt M.D. on 05/04/2023 at 12:13
== END ==
PROVIDERS: PCP Internal Medicine; Referring Provider Internal Medicine; Visit Provider Internal Medicine
DX: I26.99 Other pulmonary embolism without acute cor pulmonale (principal); I87.8 Other specified disorders of veins
CPT/HCPCS: 93970

== ENCOUNTER 2023-05-19 05:26 | Emergency (ER) | payer OTHER, SELFPAY ==
[2023-04-25 14:56] VITALS: BMI 31.2
[2023-05-19 05:32] VITALS: BP 119/71; PULSE 60; RESP 18; TEMP 36.2; O2SAT 97; BMI 29.0
--- NOTE | 2023-05-19 05:58 | ED_ITS ---
HPI - Dental/Oral General Chief complaint: Dental/Oral Stated complaint: swollen lip Time Seen by Provider: 05/19/23 05:38 Source: patient Mode of arrival: Ambulatory History of Present Illness HPI Narrative: 67-year-old male with history pulmonary embolisms on anticoagulation presents for evaluation of a swollen, slightly tender upper lip. He states that he is absent of other symptoms such as dizziness, weakness or lightheadedness, has no other facial swelling, difficulty swallowing or breathing, no rash and no GI symptoms. He had a dental procedure earlier in the day, there was no extraction, only that repair of a broken filling and preparation for crown, he an injection and a dental instrument was pulled firmly against the corner of his lip which caused him some discomfort. He is taken no new medications, does not take any lisinopril or other antihypertensives Related Data Previous Rx's Medication Instructions Recorded apixaban 5 mg tablet (Eliquis) 5 mg PO BID #180 tabs 05/03/23 rosuvastatin 10 mg tablet 10 mg PO DAILY #90 tabs 05/03/23 Allergies Allergy/AdvReac Type Severity Reaction Status Date / Time cyclobenzaprine AdvReac Mild Rash Verified 05/03/23 08:41 meloxicam AdvReac Mild Rash Verified 05/03/23 08:41 Review of Systems Review of Systems Narrative: GENERAL: Denies chills, fatigue, malaise, fever, sweats. HEENT: See HPI RESPIRATORY: See HPI. CARDIOVASCULAR: Denies chest pain, palpitations, orthopnea, edema, GASTROINTESTINAL: Denies nausea, vomiting, abdominal pain, diarrhea, constipation, melena. : Denies dysuria, frequency, incontinence, hematuria, urinary retention. MUSCULOSKELETAL: denies weakness, joint pain, or bony pain SKIN: Denies rash, skin lesions, or other NEUROLOGIC: Denies weakness, headache, numbness, change in speech, confusion, seizures, incoordination. PSYCHIATRIC: No concerning psychosocial issues. 12 point review of systems is negative except for those stated above Patient History Medical History Chronic anticoagulation Coronary artery calcification Frostbite of both feet Mixed hyperlipidemia Overweight Surgical History History of transmetatarsal amputation of right foot Social History details: , retired [employer], 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 Well-developed patient, in mild distress. HEAD: Atraumatic. Normocephalic. EYES: Pupils equal round and reactive. Extraocular motions intact. No scleral icterus. No injection or drainage. ENT: Upper lip swollen, most notably on the left side where his dental work was and has reached about [address], not tense, mildly tender, no other swelling, no tongue or throat involvement. No obvious other intraoral swelling, bleeding or other abnormality Nose without bleeding, purulent drainage. Throat without erythema, tonsillar hypertrophy or exudate. Airway patent. NECK: Trachea midline. Non tender CARDIOVASCULAR: Regular rate and rhythm without murmurs, gallops, or rubs. RESPIRATORY: Clear to auscultation. Breath sounds equal bilaterally. No wheezes, rales, or rhonchi. GASTROINTESTINAL: Abdomen soft, non-tender, nondistended. EXTREMITIES: No edema or joint tenderness. BACK: Nontender without deformity or crepitance. No flank tenderness. NEURO: AOx3. SKIN: No rash or erythema of visible areas Initial Vital Signs Initial Vital Signs: Vital Signs Temperature 97.2 F L 05/19/23 05:32 Pulse Rate 60 05/19/23 05:32 Respiratory Rate 18 05/19/23 05:32 Blood Pressure 119/71 05/19/23 05:32 Pulse Oximetry 97 05/19/23 05:32 Oxygen Delivery Method Room Air 05/19/23 05:32 Course Orders Ordered: Discontinued Medications Diphenhydramine HCl (Diphenhydramine 25 Mg Tablet) 50 mg PO NOW ONE Stop: 05/19/23 05:56 Last Admin: 05/19/23 06:01 Dose: 50 mg Documented By: AP Vital Signs Vital signs: Vital Signs - 8 hr 05/19/23 05:32 Temperature 97.2 F L Pulse Rate 60 Respiratory Rate 18 Blood Pressure 119/71 Pulse Oximetry 97 Oxygen Delivery Method Room Air MDM - Dental/Oral MDM Narrative Medical decision making narrative: [67] year old patient presents with swollen lip after dental procedure Multiple etiologies for patient's symptoms considered including, but not limited to: [Swelling from relative traumatic injury on anticoagulants versus angioedema versus allergic reaction versus infectious versus other] Prior Charts reviewed in our EMR Primary Historian: patient History and physical exam are very reassuring. Multiple diagnoses considered as noted above. Most likely scenario is traumatic injury with slightly more than increased swelling due to use of anticoagulants. No widespread symptoms that would be expected with allergy anaphylaxis. No medication history to suggest angioedema. Temporal relationship between does not procedure pain and swelling seems to paint the most accurate scenario. Patient's symptoms improved over duration of stay with above-stated therapies. Findings and discharge diagnosis discussed with patient/family followed by verb alization of understanding Return precautions discussed with patient/family whom verbalize understanding of diagnosis and plan Discharge Plan Departure Patient Disposition: Home Clinical Impression: Swelling of upper lip Activity Restrictions/Additional Instructions: *You have been diagnosed with [upper lip swelling following dental procedure. As we discussed your history and physical exam are reassuring and this is most likely a consequence of mild local trauma from dental instruments, however as we discussed there was the potential of an allergic-type scenario that may benefit from the use of antihistamines] *What to do: *Please continue to take your regular medications as directed. [ ] New medication prescriptions sent to your pharmacy: [ ] [ ] New medication written as a paper prescription [ ] No new medications given *Please follow up with your primary care provider in 2-3 days, call for an appointment. Let them know you were seen in the Emergency Department and that we ask that you be seen in follow up. We will electronically transmit a record of today's note if your PCP is in our system *If you do not have a primary care provider please contact the [facility] Resource line at [phone]. They will ask some questions about your medical history and help get you set up with a doctor in the community. *Return to Emergency Department if you should have any new, worsening or concerning symptoms, such as worsening swelling, involvement of tongue or throat, trouble breathing or other concerning symptoms Prescriptions: No Action Eliquis 5 mg tablet 5 mg PO BID Qty: 180 1RF rosuvastatin 10 mg tablet 10 mg PO DAILY Qty: 90 3RF Referrals: Renard Clarke MD [Primary Care Provider] - Stand Alone Forms: Patient Portal/API
[2023-05-19] MEDS: diphenhydrAMINE 25 MG TABLET 50 MG PO (06:01)
== END 2023-05-19 06:06 | disposition home or self-care (01) ==
PROVIDERS: Emergency Provider Emergency Medicine; PCP Internal Medicine
DX: R22.0 Localized swelling, mass and lump, head (principal)
CPT/HCPCS: 99282; 99283

== ENCOUNTER 2023-12-18 12:48 | Emergency (ER) | payer OTHER, SELFPAY ==
[2023-04-25 14:56] VITALS: BMI 31.2
[2023-12-18] VITALS (16 sets, daily range): BP systolic 120–160; BP diastolic 61–86; PULSE 50–66; RESP 12–22; TEMP 36.6; O2SAT 93–98; BMI 29.3
--- NOTE | 2023-12-18 13:02 | DI.RAD.S_ITS ---
PROCEDURE: XR CHEST 1V INDICATIONS: Shortness of breath TECHNIQUE: One view of the chest was acquired. COMPARISON: CT, CT ANGIO CHEST PE PROTOCOL, 04/25/2023, 11:16. FINDINGS: Surgical changes and devices: None. Lungs and pleura: Lungs are clear. No pleural effusions or pneumothorax. Mediastinum: Mediastinal contours appear normal. Heart size is normal. Bones and chest wall: No suspicious bony lesions. Overlying soft tissues appear unremarkable. IMPRESSION: No acute cardiopulmonary abnormality is seen. Dictated by: Staci Nava MD, PhD on 12/18/2023 at 13:41 Approved by: Staci Nava MD, PhD on 12/18/2023 at 13:43
[2023-12-18 13:18] LABS: Add Manual Diff / Slide Review NO; Basophils Absolute Auto 100 /uL (0-100); Basophils Percent Auto 0.8 % (0-2); Eosinophils Absolute Auto 200 /uL (0-450); Eosinophils Percent Auto 2.2 % (2-4); Hematocrit 44.3 % (41-53); Hemoglobin 15.1 g/dL (13.5-17.5); Lymphocytes Absolute Auto 2300 /uL (1100-4500); Mean Corpuscular HGB Conc 34.2 % (30-36); Mean Corpuscular Hemoglobin 30.2 PG (26-34); Mean Corpuscular Volume 88.3 fL (80-100); Monocytes Absolute Auto 400 /uL (0-900); Monocytes Percent Auto 6.1 % (3-14); Neutrophils Absolute Auto 4400 /uL (1500-7000); Neutrophils Percent Auto 59.9 % (50-75); Platelet Count 230 X10^3/uL (150-400); Red Blood Cell Count 5.02 X10^6/uL (4.5-5.9); Red Cell Distribution Width 13.7 % (11.6-14.8); White Blood Cell Count 7.3 X10^3/uL (4.5-11.0)
[2023-12-18 13:31] LABS: INR 1.2 (0.9-1.3); Prothrombin Time 13.3 SECONDS (9.4-12.5)
[2023-12-18 13:37] LABS: Alanine Aminotransferase 25 IU/L (<50); Albumin 4.8 g/dL (3.5-5.0); Albumin Globulin Ratio 1.2 (1.0-2.8); Alkaline Phosphatase 45 U/L (38-126); Aspartate Aminotransferase 36 IU/L (17-59); BUN Creatinine Ratio 19.6 (6-22); Bilirubin Total 1.1 mg/dL (0.2-1.3); Blood Urea Nitrogen 22 mg/dL (9-20); Calcium 10.1 mg/dL (8.4-10.2); Carbon Dioxide 27 mmol/L (22-32); Chloride 106 mmol/L (98-107); Estimated Glomerular Filt Rate > 60 mL/min (>60); Globulin 3.9 g/dL (1.7-4.1); Glucose 68 mg/dL (80-110); HEMOLYSIS < 15 (0-50); Potassium 4.5 mmol/L (3.4-5.1); Sodium 140 mmol/L (137-145); Total Protein 8.7 g/dL (6.3-8.2)
--- NOTE | 2023-12-18 13:39 | ED_ITS ---
HPI - SOB/Dyspnea General Chief Complaint: Shortness of Breath/Dyspnea Stated Complaint: possible blood clot L knee Time Seen by Provider: 12/18/23 13:17 Source: patient Mode of arrival: Ambulatory Limitations: no limitations History of Present Illness HPI Narrative: This is a 68-year-old male with history of prior pulmonary emboli with infarct in March of 2023 on Eliquis daily and dyslipidemia. Patient states he had similar pain in his right ankle had a negative DVT but positive dimer then developed chest pain, hemoptysis and shortness of breath and had a pulmonary emboli with a long with infarct after multiple long distance flights. Patient's since then has been taking his Eliquis regularly. Does note he has been running deception past 8 part regularly developed some left knee pain but does not recall any trauma twist or injuries, he has not had any swelling redness and states pain feels very similar to when he had his ankle pain and developed his blood clot. Patient states he felt short of breath today, he has not had any chest pain or pressure, no hemoptysis, no fevers or chills, no syncope. No nausea vomiting diarrhea constipation, no urinary symptoms. He did take some ibuprofen yesterday. Had minimal improvement. Has had amputation of his toes on his right foot secondary to frostbite. Has not allergy to meloxicam gets a rash but can tolerate other NSAIDs without issue as well as cyclobenzaprine. No tobacco, occasional alcohol, no recreational drugs. Dr. Clarke is his primary care physician. Related Data Previous Rx's Medication Instructions Recorded apixaban 5 mg tablet (Eliquis) 5 mg PO BID #180 tabs 07/31/23 rosuvastatin 10 mg tablet 10 mg PO DAILY #90 tabs 07/31/23 diclofenac sodium 1 % topical gel 2 g topical QID PRN pain #100 grams 12/18/23 (Aleve (diclofenac)) Allergies Allergy/AdvReac Type Severity Reaction Status Date / Time cyclobenzaprine AdvReac Mild Rash Verified 12/18/23 12:44 meloxicam AdvReac Mild Rash Verified 12/18/23 12:44 Review of Systems Review of Systems ROS Unobtainable: All systems reviewed & are unremarkable except as noted in HPI and below Patient History Medical History Impaired fasting glucose Coronary artery calcification Overweight Mixed hyperlipidemia Frostbite of both feet Chronic anticoagulation Surgical History History of transmetatarsal amputation of right foot Social History details: , retired [employer], 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 HEENT: Head normocephalic, atraumatic, EOMI, pupils reactive, face symmetric, moist mucous membranes NECK: Supple, full range of motion CARDIOVASCULAR: Regular rate and rhythm without murmurs, rubs or gallops. No JVD. No edema bilateral lower extremity RESPIRATORY: Breath sounds equal bilaterally, no wheezes rales or rhonchi. No tachypnea or accessory muscle use. ABDOMEN: Soft, nontender. Normoactive bowel sounds all 4 quadrants. No guarding or rebound, rigidity, no mass : No CVA tenderness EXTREMITIES: Normal range of motion, no clubbing or edema. Neurovascularly intact. 2+ pulses bilateral lower extremities. No bony tenderness on examination. No effusion. Anterior, posterior drawer and valgus varus testing are negative in terms of laxity but patient does have discomfort. Also has some discomfort with compression test. NEUROLOGICAL: Cranial nerves II through XII grossly intact. Moving all extremities SKIN: Warm, dry, no petechiae, no rashes or lesions. Initial Vital Signs Initial Vital Signs: Vital Signs Temperature 97.8 F 12/18/23 12:52 Pulse Rate 65 12/18/23 12:52 Respiratory Rate 20 12/18/23 12:52 Blood Pressure 149/73 H 12/18/23 12:52 Pulse Oximetry 98 12/18/23 12:52 Oxygen Delivery Method Room Air 12/18/23 12:52 Course Orders Ordered: ED Orders 12/18/23 13:02 XR chest 1V Stat Measure peak expiratory flow ONCE RT Consult Eval and Treat NOW 12/18/23 13:10 Complete Blood Count AUTO DIFF Stat Comprehensive Metabolic Panel Stat Lactate (Lactic Acid) Stat NT-proBNP (BNP-Adult 18+) Stat Prothrombin Time INR Stat Troponin I Stat 12/18/23 13:13 EKG-12 Lead Stat 12/18/23 13:58 CT angio chest PE protocol Stat US periph venous low extrem lt Stat 12/18/23 15:14 Trop I [Troponin I] Stat 12/18/23 16:33 XR knee LT 3V Stat Discontinued Medications Ketorolac Tromethamine (Ketorolac 30 Mg/Ml Vial) 15 mg IV NOW ONE Stop: 12/18/23 14:00 Last Admin: 12/18/23 14:06 Dose: 15 mg Documented By: KASI Vital Signs Vital signs: Vital Signs - 8 hr 12/18/23 12:52 12/18/23 13:02 12/18/23 13:03 Temperature 97.8 F Pulse Rate 65 58 L Respiratory Rate 20 Blood Pressure 149/73 H 160/76 H Pulse Oximetry 98 96 Oxygen Delivery Method Room Air 12/18/23 13:03 12/18/23 13:30 12/18/23 13:31 Temperature Pulse Rate 60 59 L 60 Respiratory Rate 14 20 Blood Pressure Pulse Oximetry 96 93 94 Oxygen Delivery Method 12/18/23 13:31 12/18/23 14:00 12/18/23 14:00 Temperature Pulse Rate 63 Respiratory Rate 12 Blood Pressure 120/64 134/77 Pulse Oximetry 95 Oxygen Delivery Method 12/18/23 14:59 12/18/23 15:00 12/18/23 15:01 Temperature Pulse Rate 58 L 66 60 Respiratory Rate 19 21 Blood Pressure Pulse Oximetry 96 96 96 Oxygen Delivery Method 12/18/23 15:01 12/18/23 15:30 12/18/23 15:30 Temperature Pulse Rate 59 L Respiratory Rate 22 Blood Pressure 122/61 127/66 Pulse Oximetry 95 Oxygen Delivery Method 12/18/23 16:00 12/18/23 16:00 12/18/23 16:30 Temperature Pulse Rate 65 55 L Respiratory Rate 16 12 Blood Pressure 157/86 H Pulse Oximetry 96 94 Oxygen Delivery Method 12/18/23 16:31 12/18/23 16:31 12/18/23 17:00 Temperature Pulse Rate 56 L 50 L Respiratory Rate 21 14 Blood Pressure 141/67 H Pulse Oximetry 95 94 Oxygen Delivery Method 12/18/23 17:01 12/18/23 17:12/18/23 17:30 Temperature Pulse Rate 55 L 53 L Respiratory Rate 19 18 Blood Pressure 139/61 Pulse Oximetry 95 94 Oxygen Delivery Method 12/18/23 17:30 Temperature Pulse Rate Respiratory Rate Blood Pressure 152/80 H Pulse Oximetry Oxygen Delivery Method MDM - SOB/Dyspnea Lab Data 12/18/23 13:10 12/18/23 13:10 Labs: Lab Results 12/18/23 12/18/23 Range/Units 13:10 15:14 WBC 7.3 (4.5-11.0) X10^3/uL RBC 5.02 (4.5-5.9) X10^6/uL Hgb 15.1 (13.5-17.5) g/dL Hct 44.3 (41-53) % MCV 88.3 (80-100) fL MCH 30.2 (26-34) PG MCHC 34.2 (30-36) % RDW 13.7 (11.6-14.8) % Plt Count 230 (150-400) X10^3/uL Neut % (Auto) 59.9 (50-75) % Lymph % (Auto) 31.0 (25-40) % [place] % (Auto) 6.1 (3-14) % Eos % (Auto) 2.2 (2-4) % Baso % (Auto) 0.8 (0-2) % Neut # (Auto) 4400 (4343-7397) /uL Lymph # (Auto) 2300 (9668-6607) /uL [place] # (Auto) 400 (0-900) /uL Eos # (Auto) 200 (0-450) /uL Baso # (Auto) 100 (0-100) /uL PT 13.3 H (9.4-12.5) SECONDS INR 1.2 (0.9-1.3) Sodium 140 (137-145) mmol/L Potassium 4.5 (3.4-5.1) mmol/L Chloride 106 (98-107) mmol/L Carbon Dioxide 27 (22-32) mmol/L BUN 22 H (9-20) mg/dL Creatinine 1.12 (0.66-1.25) mg/dL Estimated GFR > 60 (>60) mL/min BUN/Creatinine Ratio 19.6 (6-22) Glucose 68 L (80-110) mg/dL Lactate 1.0 (0.7-2.1) mmol/L Calcium 10.1 (8.4-10.2) mg/dL Total Bilirubin 1.1 (0.2-1.3) mg/dL AST 36 (17-59) IU/L ALT 25 (<50) IU/L Alkaline Phosphatase 45 (38-126) U/L Troponin I < 0.012 < 0.012 (0.01-0.034) ng/mL NT-Pro-B Natriuret Pep 49 (<125) pg/mL Total Protein 8.7 H (6.3-8.2) g/dL Albumin 4.8 (3.5-5.0) g/dL Globulin 3.9 (1.7-4.1) g/dL Albumin/Globulin Ratio 1.2 (1.0-2.8) Imaging Data Chest x-ray: Radiologist's Impression: [address] [address] XRay Report Signed Patient: Henry Bee MR#: [id number] : 1955 Acct:[id number] Age/Sex: 68 / M Date of Service: 12/18/23 Loc: ED Accession Number: [id number] Procedure: XR chest 1V Ordering Provider: Ruchi Alejandro D.O. PROCEDURE: XR CHEST 1V INDICATIONS: Shortness of breath TECHNIQUE: One view of the chest was acquired. COMPARISON: CT, CT ANGIO CHEST PE PROTOCOL, 04/25/2023, 11:16. FINDINGS: Surgical changes and devices: None. Lungs and pleura: Lungs are clear. No pleural effusions or pneumothorax. Mediastinum: Mediastinal contours appear normal. Heart size is normal. Bones and chest wall: No suspicious bony lesions. Overlying soft tissues appear unremarkable. IMPRESSION: No acute cardiopulmonary abnormality is seen. Dictated by: Staci Nava MD, PhD on 12/18/2023 at 13:41 Approved by: Staci Nava MD, PhD on 12/18/2023 at 13:43 US - DVT: Radiologist's Impression: Close Vascular Ultrasound (Signed) Leilani Yusuf - 12/18/23 Chest X-Ray (Signed) Staci Nava - 12/18/23 Vascular Ultrasound (Signed) Edwar Hunt 05/04/23 Echocardiogram Ultrasound (Signed) Rosetta Segura - 04/25/23 Telemetry Strips 04/25/23 Chest CTA (Signed) DarshanaKaylee - 04/25/23 Vascular Ultrasound (Signed) YaniraJulia - 04/13/23 Launch?Image [address] [address] Ultrasound Report Signed Patient: Henry Bee MR#: [id number] : 1955 Acct:[id number] Age/Sex: 68 / M Date of Service: 12/18/23 Loc: ED Accession Number: [id number] Procedure: US periph venous low extrem lt Ordering Provider: Ruchi Alejandro D.O. PROCEDURE: US PERIPH VENOUS LOW EXTREM LT INDICATIONS: POSTERIOR KNEE PAIN. HISTORY OF DEEP VEIN THROMBOSIS TECHNIQUE: Real-time imaging, as well as color and pulse Doppler interrogation, were performed of the lower extremity deep veins from the inguinal ligament to the popliteal fossa, with documentation of the visualized calf veins. COMPARISON: None. FINDINGS: The common femoral, femoral, popliteal, and the visualized calf veins are normally compressible, and free of intraluminal thrombus. Color and pulse Doppler demonstrate normal phasic intraluminal flow. There is normal augmentation response to distal compression maneuver. IMPRESSION: No findings of lower extremity deep venous thrombosis. Dictated by: Leilani Yusuf M.D. on 12/18/2023 at 14:34 Approved by: Leilani Yusuf M.D. on 12/18/2023 at 14:34 CT scan - chest: Radiologist's Impression: [address] [address] XRay Report Signed Patient: Haja Vazquez MR#: [id number] : 05/03/2008 Acct:[id number] Age/Sex: 15 / M Date of Service: 12/18/23 Loc: ED Accession Number: [id number] Procedure: XR ankle LT min 3V Ordering Provider: Emilia Judge P.A-C PROCEDURE: XR ANKLE LT MIN 3V INDICATIONS: injury/twist TECHNIQUE: 3 views of the ankle were acquired. COMPARISON: None. FINDINGS: Bones: There is a possible tiny bone fragment adjacent to the lateral malleolus and lateral talar process, best seen on frontal view. No displaced fracture or dislocation elsewhere. Soft tissues: No suspicious calcifications. IMPRESSION: Tiny age-indeterminate bone fragment, possibly from prior avulsion injury, adjacent to the lateral malleolus and lateral talar process. Correlate with location of injury. Dictated by: Selvin Ortiz M.D. on 12/18/2023 at 15:18 Approved by: Selvin Ortiz M.D. on 12/18/2023 at 15:19 Extremity x-ray #1: Radiologist's Impression: [address] [address] XRay Report Signed Patient: Henry Bee MR#: [id number] : 1955 Acct:[id number] Age/Sex: 68 / M Date of Service: 12/18/23 Loc: ED Accession Number: [id number] Procedure: XR knee LT 3V Ordering Provider: Ruchi Alejandro D.O. PROCEDURE: XR KNEE LT 3V INDICATIONS: knee pain TECHNIQUE: 3 views of the knee were acquired. COMPARISON: None. FINDINGS: Bones: No fractures or dislocations. No suspicious bony lesions. Mild degenerative joint disease. Soft tissues: Trace joint effusion. No suspicious soft tissue calcifications. IMPRESSION: 1. No acute bony abnormality or significant effusion. 2. Mild degenerative joint disease. 3. Trace knee joint effusion. Dictated by: Kaylee Gilliland M.D. on 12/18/2023 at 17:03 Approved by: Kaylee Gilliland M.D. on 12/18/2023 at 17:05 ECG Data Attestation: I personally reviewed and interpreted this ECG as follows: Interpretation: Rate of 61 WI 164 QRS of 90 QTC of 422. No acute ST elevation depression noted patient has prior from 04/25/[address] changes. MDM Narrative Medical decision making narrative: 68-year-old male comes in with concern for possible blood clot, patient has had prior blood clots in the past he is anticoagulated on apixaban states no missed doses. Had prior episode with right ankle pain had DVT ultrasound which was negative but then developed chest pain, hemoptysis and shortness of breath after multiple flights and was found to have pulmonary emboli and infarcts, had his legs ultrasound and again afterwards and never found DVT in his lower extremities. Patient is quite active but developed some left knee pain could potentially be mechanical he runs regularly on trails but also had some increased shortness of breath and states pain feels very similar to when he developed his blood clot in the past. Plan for labs, EKG, DVT ultrasound, CT angio was obtained. Labs show white count of 7.3 hemoglobin of 15 platelets of 230, sodium 140 potassium of 4 5, chloride of 106 with a CO2 27, BUN 22 creatinine 1.12, glucose was 68, INR is 1.2 with calcium 10.1, negative LFTs. Negative troponin and a BNP of 49. Chest xray is negative EKG sinus rhythm no acute changes no dynamic changes from prior in 2022. CT angio chest negative for PE, scarring or atelectasis/scarring without dense airspace disease or pleural effusion.? Patient is noted to have mildly patulous esophagus with small amount of fluid usually related to dysmotility or free efflux consider endoscopic correlation if needed no pathologic adenopathy.? Borderline cardiomegaly.? Questionable irregular liver contour maybe seen with chronic liver disease. DVT ultrasound is negative for bilateral lower extremities. Repeat troponin on repeat. Patient's workup does not show any significant change or concerning changes for his shortness breath. Does have some right knee pain, negative DVT ultrasound. Patient has some minimal discomfort with joint laxity testing weightbear does note that pain started after running and then he sat for a prolonged period of time and then stood it was much more painful. X-ray shows a trace effusion, no fracture degenerative changes. Discussed with patient should probably avoid NSAIDs because he is on apixaban but could use a topical gel such as Voltaren. Discharge Plan Departure Patient Disposition: Home Clinical Impression: Acute knee pain, Dyspnea, Effusion of knee joint, left Instructions: DI for Knee Effusion Activity Restrictions/Additional Instructions: Follow-up with your physician for recheck. Your x-ray imaging does show a trace knee effusion and some degenerative changes. Continue your home medications as prescribed. You may take Tylenol up to a 1000 mg every 6 hours as needed for pain. Use topical cream to your left knee as prescribed. Prescription sent to [facility] in [place] Please return for new or worsening symptoms increasing chest pain or shortness of breath, lightheadedness or passing out, coughing up blood, new swelling in her extremities, numbness tingling or weakness or other new or concerning changes. Prescriptions: New diclofenac sodium [Aleve (diclofenac)] 1 % gel 2 g topical QID PRN (Reason: pain) Qty: 100 0RF Rx Instructions: apply to single elbow, wrist or hand; for hand includes palm/fingers/back of hand No Action rosuvastatin 10 mg tablet 10 mg PO DAILY Qty: 90 3RF Eliquis 5 mg tablet 5 mg PO BID Qty: 180 3RF Referrals: Renard Clarke MD [Primary Care Provider] - Stand Alone Forms: Patient Portal/API
[2023-12-18 13:48] LABS: NT-proBNP (BNP-Adult 18+) 49 pg/mL (<125); Troponin I < 0.012 ng/mL (0.01-0.034)
--- NOTE | 2023-12-18 13:58 | DI.US.S_ITS ---
PROCEDURE: US PERIPH VENOUS LOW EXTREM LT INDICATIONS: POSTERIOR KNEE PAIN. HISTORY OF DEEP VEIN THROMBOSIS TECHNIQUE: Real-time imaging, as well as color and pulse Doppler interrogation, were performed of the lower extremity deep veins from the inguinal ligament to the popliteal fossa, with documentation of the visualized calf veins. COMPARISON: None. FINDINGS: The common femoral, femoral, popliteal, and the visualized calf veins are normally compressible, and free of intraluminal thrombus. Color and pulse Doppler demonstrate normal phasic intraluminal flow. There is normal augmentation response to distal compression maneuver. IMPRESSION: No findings of lower extremity deep venous thrombosis. Dictated by: Leilani Yusuf M.D. on 12/18/2023 at 14:34 Approved by: Leilani Yusuf M.D. on 12/18/2023 at 14:34
--- NOTE | 2023-12-18 13:58 | DI.CT.S_ITS ---
PROCEDURE: CT ANGIO CHEST PE PROTOCOL INDICATIONS: sob, left knee pain, hx pe with infarct March 2023 TECHNIQUE: After the administration of intravenous contrast, 2 mm thick sections acquired from the pulmonary apices to the posterior costophrenic angles. 3-dimensional maximum intensity projection (MIP) coronal and sagittal reformats were then acquired through the thorax. For radiation dose reduction, the following was used: automated exposure control, adjustment of mA and/or kV according to patient size. COMPARISON: [facility], CT, CT ANGIO CHEST PE PROTOCOL, 04/25/2023, 11:16. FINDINGS: Image quality: Diagnostic Lungs and pleura: Scattered scarring and atelectasis. No dense airspace disease or pleural effusions. Mediastinum, heart, and esophagus: No acute pulmonary embolism. Mildly patulous esophagus with small amount of fluid, usually related to dysmotility or reflux, consider endoscopic correlation if needed. No pathologic lymphadenopathy by size criteria Borderline cardiomegaly. Chest wall and thyroid: Unremarkable Upper abdomen: No gross abnormality on these arterial phase images. Questionably irregular liver contour may be seen with chronic liver disease. Bones: Degenerative changes. IMPRESSION: No acute pulmonary embolism. Scattered areas of scarring/atelectasis, without dense airspace disease or pleural effusion. Consider future imaging surveillance to assess for resolution. Other findings above. Dictated by: Selvin Ortiz M.D. on 12/18/2023 at 15:12 Approved by: Selvin Ortiz M.D. on 12/18/2023 at 15:17
[2023-12-18] MEDS: KETOROLAC 30 MG/ML VIAL 15 MG IV (14:06)
[2023-12-18 15:52] LABS: Troponin I < 0.012 ng/mL (0.01-0.034)
--- NOTE | 2023-12-18 16:33 | DI.RAD.S_ITS ---
PROCEDURE: XR KNEE LT 3V INDICATIONS: knee pain TECHNIQUE: 3 views of the knee were acquired. COMPARISON: None. FINDINGS: Bones: No fractures or dislocations. No suspicious bony lesions. Mild degenerative joint disease. Soft tissues: Trace joint effusion. No suspicious soft tissue calcifications. IMPRESSION: 1. No acute bony abnormality or significant effusion. 2. Mild degenerative joint disease. 3. Trace knee joint effusion. Dictated by: Kaylee Gilliland M.D. on 12/18/2023 at 17:03 Approved by: Kaylee Gilliland M.D. on 12/18/2023 at 17:05
== END 2023-12-18 17:45 | disposition home or self-care (01) ==
PROVIDERS: Emergency Provider Emergency Medicine; PCP Internal Medicine
DX: M25.562 Pain in left knee (principal); R07.9 Chest pain, unspecified; R06.00 Dyspnea, unspecified; M25.462 Effusion, left knee; Z79.01 Long term (current) use of anticoagulants; I25.2 Old myocardial infarction; Z86.711 Personal history of pulmonary embolism
CPT/HCPCS: 36415; 71045; 71275; 73562; 80053; 83605; 83880; 84484; 85025; 85610; 93005; 93971; 96374; 99284; 99285; J1885

== ENCOUNTER → 2024-01-11 10:26 | Outpatient (CLI) | payer OTHER, SELFPAY ==
[2023-04-25 14:56] VITALS: BMI 31.2
[2024-01-11 11:13] LABS: Hemoglobin A1C% w Est Avg Glu 5.9 % (4.0-6.0)
[2024-01-11 11:24] LABS: Cholesterol 205 mg/dL (140-199); HDL Cholesterol 55 mg/dL (40-60); LDL Cholesterol Calculated 121 mg/dL (<100); Triglycerides 147 mg/dL (35-150)
[2024-01-14 16:21] LABS: Dil Russell Viper Venom Conf 1.4 ratio (0.8-1.2); Dilute Russell Viper Venom 71.4 sec (0.0-47.0); Dilute Russell Viper Venom Mix 50.2 sec (0.0-40.4); Lupus Reflex Interpretation Comment: (.); PTT-LA 38.2 sec (0.0-43.5)
== END ==
PROVIDERS: PCP Internal Medicine; Referring Provider Internal Medicine; Visit Provider Internal Medicine
DX: E78.2 Mixed hyperlipidemia (principal); R73.01 Impaired fasting glucose; I26.99 Other pulmonary embolism without acute cor pulmonale; Z79.01 Long term (current) use of anticoagulants
CPT/HCPCS: 36415; 80061; 83036; 85598; 85613

== ENCOUNTER 2024-08-21 13:39 | Day surgery (SDC) | payer MEDICARE, SELFPAY ==
[2023-04-25 14:56] VITALS: BMI 31.2
[2024-08-21 14:03] VITALS: BP 156/97; PULSE 56; RESP 16; TEMP 36.1; O2SAT 98
--- NOTE | 2024-08-21 14:37 | P.HP_ITS ---
History of Present Illness History of Present Illness Date Patient Seen: 08/21/24 Time Patient Seen: 14:37 [place] [facility] [place] Henry is a 69-year-old man who is here for colonoscopy. His last 1 was about 5 years ago and he thinks he had a polyp removed. 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 household members: spouse and children Smoking Status: Never smoker Meds Home Medications and Allergies Home Medications Medication Instructions Recorded Confirmed Type diclofenac sodium 1 % topical gel 2 g topical QID PRN pain #100 grams 12/18/23 08/21/24 Rx (Aleve (diclofenac)) rosuvastatin 10 mg tablet 10 mg PO DAILY #90 tabs 05/21/24 08/21/24 Rx sodium,potassium,mag sulfates 17.5 See Rx Instructions PO .COMPLEX 08/15/24 Rx gram-3.13 gram-1.6 gram oral soln #354 mL (Suprep Bowel Prep Kit) Allergies Allergy/AdvReac Type Severity Reaction Status Date / Time cyclobenzaprine AdvReac Mild Rash Verified 08/21/24 13:53 meloxicam AdvReac Mild Rash Verified 08/21/24 13:53 Exam Vital Signs (past 8 hours): - 08/21/24 14:03 Temperature 96.9 F L Pulse Rate 56 L Respiratory Rate 16 Blood Pressure 156/97 H Pulse Oximetry 98 Oxygen Delivery Method Room Air Oxygen Delivery Method Room Air Const General: healthy appearing Assessment & Plan Assessment and plan (1) History of colonic polyps: Problem details: History of tubular adenoma Status: Acute Plan Colonoscopy Time-Based Coding :: [TOTAL MINUTES] spent with patient and on the chart (including review of chart, obtaining history, exam, reviewing outside data, placing orders, documenting exam and treatment plan, and counseling patient) on [DATE].
[2024-08-21 14:58] VITALS: BP 116/74; PULSE 63; RESP 14; TEMP 36.2; O2SAT 99
[2024-08-21 15:02] VITALS: BP 113/62; PULSE 63; RESP 15; O2SAT 94
--- NOTE | 2024-08-21 15:04 | PM.OP.COLON ---
Operative Date/Time/Diagnoses Date of procedure: 08/21/24 Time of procedure: 15:04 Pre-op diagnosis: Colon cancer screening Post-op diagnosis: same Procedure & Clinicians Study performed: Colonoscopy Same procedure as scheduled: Yes Surgeon: Jacky Gates Procedure Notes Procedure in detail: Surgeon: Jacky Gates MD Anesthesia: Melody Browne CRNA Procedure: The patient was brought to the endoscopy suite, placed in left lateral decubitus position. The patient was connected to monitoring devices. A time-out was performed. Sedation was administered. Once the patient was adequately sedated, a digital rectal exam was performed and was normal. The scope was then inserted and advanced to the cecum where the appendiceal orifice was identified and photographed. The scope was then slowly withdrawn over greater than 6 minutes. The mucosa was thoroughly inspected. No abnormalities were found. The scope was retroflexed in the rectum. The scope was straightened and removed. The patient was awakened and brought to recovery. Scope withdrawal time: 6 minutes Sedation time: 11 minutes EBL: 0 Findings: Normal colon Post-procedure Recommendations: Colonoscopy in 10 years Disposition: PACU
[2024-08-21 15:06] VITALS: BP 109/70; PULSE 69; RESP 11; TEMP 36.9; O2SAT 95
== END 2024-08-21 15:40 | disposition home or self-care (01) ==
PROVIDERS: PCP Internal Medicine; Referring Provider Surgery; Visit Provider Surgery
PROC: 0DJD8ZZ Inspection of Lower Intestinal Tract, Via Natural or Artificial Opening Endoscopic (ICD-10-PCS; CPT 45378; principal; 2024-08-21 14:45)
DX: Z12.11 Encounter for screening for malignant neoplasm of colon (principal)
CPT/HCPCS: G0121; J2704

== ENCOUNTER 2024-10-07 14:07 | Emergency (ER) | payer MEDICARE, OTHER, SELFPAY ==
[2023-04-25 14:56] VITALS: BMI 31.2
[2024-10-07 14:09] VITALS: BP 140/84; PULSE 75; RESP 18; TEMP 37; O2SAT 96; BMI 29.9
--- NOTE | 2024-10-07 14:50 | DI.US.S_ITS ---
PROCEDURE: US PERIP VENOUS LOW EXTREM RT INDICATIONS: R groin pain; hx PE TECHNIQUE: Real-time imaging, as well as color and pulse Doppler interrogation, were performed of the lower extremity deep veins from the inguinal ligament to the popliteal fossa, with documentation of the visualized calf veins. COMPARISON: [facility], [facility] VENOUS LOW EXTREM RT, 04/13/2023, 9:22. FINDINGS: The common femoral, femoral, popliteal, and the visualized calf veins are normally compressible, and free of intraluminal thrombus. Color and pulse Doppler demonstrate normal phasic intraluminal flow. There is normal augmentation response to distal compression maneuver. IMPRESSION: No findings of lower extremity deep venous thrombosis. Dictated by: Julia Doyle M.D. on 10/07/2024 at 15:48 Approved by: Julia Doyle M.D. on 10/07/2024 at 15:48
--- NOTE | 2024-10-07 15:04 | DI.RAD.S_ITS ---
PROCEDURE: XR HIP W PEL IF DONE RT 2V INDICATIONS: R groin pain TECHNIQUE: AP pelvis with lateral view(s) of the right hip(s). COMPARISON: None. FINDINGS: Bones: No fractures or dislocations. Pelvic ring appears intact. No suspicious bony lesions. Mild degenerative changes within the lower lumbar spine as well as the hips bilaterally. Soft tissues: The visualized bowel gas pattern is normal. No suspicious soft tissue calcifications. IMPRESSION: No visualized acute fracture or dislocation. However, if clinical concern and/or pain persist, short interval imaging followup in 7-10 days is recommended, as occult injury cannot be definitively excluded. Dictated by: Julia Doyle M.D. on 10/07/2024 at 15:47 Approved by: Julia Doyle M.D. on 10/07/2024 at 15:48
--- NOTE | 2024-10-07 15:07 | ED.EXTPRO ---
HPI - Extremity Problem <Emilia Judge PA-C - Last Filed: 10/07/24 16:28> General Chief complaint: Extremity Problem,Nontraumatic Stated complaint: rt groin and hip px Time Seen by Provider: 10/07/24 14:50 Source: patient Mode of arrival: Ambulatory History of Present Illness HPI Narrative: 69-year-old male with past medical history bilateral pulmonary embolism with pulmonary infarct, hyperlipidemia presents to the ED with 3 days of right groin pain. Patient has a history of bilateral pulmonary emboli with pulmonary infarct in March 2023. Patient was on anticoagulation for a year, went off the anticoagulation about 6 months ago. Patient just returned from [facility], endorses 3 days of right-sided groin pain. Patient also endorses some shortness of breath. No fever, chills, chest pain, nausea, vomiting, lightheadedness, dizziness, syncope. Patient states that since Eliquis and prednisone were [id number] in [facility], he did go ahead and start anticoagulation as well as prednisone. Related Data Previous Rx's Medication Instructions Recorded diclofenac sodium 1 % topical gel 2 g topical QID PRN pain #100 grams 12/18/23 (Aleve (diclofenac)) rosuvastatin 10 mg tablet 10 mg PO DAILY #90 tabs 05/21/24 Allergies Allergy/AdvReac Type Severity Reaction Status Date / Time cyclobenzaprine AdvReac Mild Rash Verified 08/21/24 13:53 meloxicam AdvReac Mild Rash Verified 08/21/24 13:53 Review of Systems <Emilia Judge PA-C - Last Filed: 10/07/24 16:28> Constitutional Constitutional: Denies chills, Denies fatigue, Denies fever(s), Denies frequent falls, Denies lethargy and Denies weakness Eyes Eyes: Denies change in vision, Denies eye discharge, Denies irritation and Denies loss of vision ENT Ears, Nose, Mouth, and Throat: Denies change in voice, Denies dizziness, Denies neck pain, Denies sore throat and Denies throat swelling Cardiovascular Cardiovascular: Denies chest pain, Denies irregular heart rhythm, Denies lightheadedness, Denies palpitations, Denies dyspnea, Denies dyspnea on exertion and Denies orthopnea Respiratory Respiratory: Denies cough, Denies dyspnea, Denies dyspnea on exertion and Denies wheezing Gastrointestinal Gastrointestinal: Denies abdominal pain, Denies change in bowel habits, Denies diarrhea, Denies nausea and Denies vomiting Musculoskeletal Musculoskeletal: Denies neck pain and Denies numbness Comments: Right-sided groin pain Integumentary/Breasts Skin/Breast: Denies pruritus, Denies erythema, Denies rash and Denies wounds Neurologic Neurologic: Denies behavioral changes, Denies confusion, Denies dizziness, Denies frequent falls, Denies loss of vision, Denies numbness and Denies weakness Psychiatric Psychiatric: Denies anxiety, Denies behavioral changes, Denies confusion, Denies depression, Denies homicidal ideation and Denies suicidal ideation Endocrine Endocrine: Denies fatigue, Denies flushing and Denies palpitations Hematologic/Lymphatic Hematologic/Lymphatic: Denies easy bruising Allergic/Immunologic Allergic/Immunologic: Denies urticaria, Denies throat swelling and Denies wheezing Patient History <Emilia Judge PA-C - Last Filed: 10/07/24 16:28> Medical History History of colonic polyps Impaired fasting glucose Coronary artery calcification Overweight Mixed hyperlipidemia Frostbite of both feet Chronic anticoagulation Surgical History History of transmetatarsal amputation of right foot Social History details: , retired [employer], 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 household members: spouse and children Smoking Status: Never smoker Smoking Status: Never smoker alcohol intake frequency: holidays/special occasions only Exam <Emilia Judge PA-C - Last Filed: 10/07/24 16:28> Narrative Exam Narrative: Const General:?cooperative, healthy appearing and comfortable [facility] Head:?normal to inspection Ears:?hearing grossly normal bilaterally Nose:?external nose normal Face and sinus:?normal facial exam and sinuses nontender Mouth:?oral mucosae normal Throat:?posterior oropharynx normal Eyes General:?appearance normal, both eyes and all related structures Neck Neck:?normal visual inspection and no lymphadenopathy noted Resp Effort & Inspection:?normal respiratory effort Auscultation:?clear to auscultation bilaterally Cardio Rate:?regular rate Rhythm:?regular rhythm Musculoskeletal There is some tenderness to palpation of the right groin. No erythema, bruising, swelling, rashes. Neuro General:?patient alert, patient awake and patient oriented x3 Initial Vital Signs Initial Vital Signs: Vital Signs Temperature 98.6 F 10/07/24 14:09 Pulse Rate 75 10/07/24 14:09 Respiratory Rate 18 10/07/24 14:09 Blood Pressure 140/84 10/07/24 14:09 Pulse Oximetry 96 10/07/24 14:09 Oxygen Delivery Method Room Air 10/07/24 14:09 <Johnathan Corral MD - Last Filed: 10/10/24 08:27> Initial Vital Signs Initial Vital Signs: Vital Signs Temperature 98.6 F 10/07/24 14:09 Pulse Rate 75 10/07/24 14:09 Respiratory Rate 18 10/07/24 14:09 Blood Pressure 140/84 10/07/24 14:09 Pulse Oximetry 96 10/07/24 14:09 Oxygen Delivery Method Room Air 10/07/24 14:09 Course <Emilia Judge PA-C - Last Filed: 10/07/24 16:28> Orders Ordered: ED Orders 10/07/24 14:50 US periph venous low extrem rt Stat 10/07/24 15:04 XR hip w pel if done RT 2V Stat Vital Signs Vital signs: Vital Signs - 8 hr 10/07/24 14:09 Temperature 98.6 F Pulse Rate 75 Respiratory Rate 18 Blood Pressure 140/84 Pulse Oximetry 96 Oxygen Delivery Method Room Air <Johnathan Corral MD - Last Filed: 10/10/24 08:27> Orders Ordered: ED Orders 10/07/24 14:50 US periph venous low extrem rt Stat 10/07/24 15:04 XR hip w pel if done RT 2V Stat Vital Signs Vital signs: Vital Signs - 8 hr 10/07/24 14:09 Temperature 98.6 F Pulse Rate 75 Respiratory Rate 18 Blood Pressure 140/84 Pulse Oximetry 96 Oxygen Delivery Method Room Air MDM - Extremity (Nontraumatic) <Emilia Judge PA-C - Last Filed: 10/07/24 16:28> MDM Narrative Medical decision making narrative: 69-year-old male with past medical history bilateral pulmonary embolism with pulmonary infarct, hyperlipidemia presents to the ED with 3 days of right groin pain. Concern for DVT versus musculoskeletal sprain/strain versus other. Will obtain ultrasound, reassess. Ultrasound with no findings of lower extremity DVT. Hip and pelvis x-ray was also obtained which shows no visualized acute fracture or dislocation. Patient's symptoms likely due to a musculoskeletal sprain/strain. Recommend Tylenol, ibuprofen. Patient may continue another 2 days of the prednisone taper. Patient to stop Eliquis. ED return precautions discussed with patient. Patient verbalized understanding. Medical records reviewed: Yes Discharge Plan Departure Patient Disposition: Home Clinical Impression: Groin pain Qualifiers: Laterality: right Qualified Code(s): R10.31 - Right lower quadrant pain Instructions: DI for Groin Strain Activity Restrictions/Additional Instructions: You were evaluated in the ED today for right-sided groin pain. Your ultrasound did not show any DVTs. Your x-ray was normal as well. Your groin pain is likely due to a musculoskeletal sprain/strain. You may take Tylenol, ibuprofen for it. Please refrain from taking Eliquis. You may complete the prednisone. Please follow-up with your PCP as soon as possible. Return to the ED if you have worsening symptoms. Prescriptions: No Action rosuvastatin 10 mg tablet 10 mg PO DAILY Qty: 90 3RF diclofenac sodium [Aleve (diclofenac)] 1 % gel 2 g topical QID PRN (Reason: pain) Qty: 100 0RF Rx Instructions: apply to single elbow, wrist or hand; for hand includes palm/fingers/back of hand Referrals: Renard Clarke MD [Primary Care Provider] - Stand Alone Forms: Patient Portal/API/Survey ED Sign-out <Johnathan Corral MD - Last Filed: 10/10/24 08:27> Cosign ED Attending Hossein Attestation: I was immediately available in the department for consultation. ?This documentation has been reviewed and I agree with assessment and plan. Supervised by Jonhathan Corral MD
--- NOTE | 2024-10-07 15:08 | PC.NURSE ---
Patient reports pain in right upper leg and groin starting four days ago. Hx DVT and PE, was in [place] at time of pain beginning, got presdnisone taper and Eloquis from pharmacy and started. Denies chest pain or SOB at this time
== END 2024-10-07 16:31 | disposition home or self-care (01) ==
PROVIDERS: Emergency Provider Student in an Organized Health Care Education/Training Program; PCP Internal Medicine
DX: R10.31 Right lower quadrant pain (principal); Z86.711 Personal history of pulmonary embolism; Z79.01 Long term (current) use of anticoagulants; Z79.52 Long term (current) use of systemic steroids
CPT/HCPCS: 73502; 93971; 99283

== ENCOUNTER → 2024-10-16 13:51 | Outpatient (CLI) | payer MEDICARE, OTHER, SELFPAY ==
[2023-04-25 14:56] VITALS: BMI 31.2
[2024-10-16 15:16] LABS: Hematocrit 45.7 % (41-53); Hemoglobin 15.4 g/dL (13.5-17.5); Mean Corpuscular HGB Conc 33.8 % (30-36); Mean Corpuscular Hemoglobin 29.7 PG (26-34); Mean Corpuscular Volume 87.9 fL (80-100); Platelet Count 290 X10^3/uL (150-400); Red Cell Distribution Width 13.8 % (11.6-14.8); White Blood Cell Count 8.9 X10^3/uL (4.5-11.0)
[2024-10-16 15:47] LABS: Blood Urea Nitrogen 24 mg/dL (9-20); Calcium 9.9 mg/dL (8.4-10.2); Carbon Dioxide 23 mmol/L (22-32); Chloride 104 mmol/L (98-107); Estimated Glomerular Filt Rate > 60 mL/min (>60); Glucose 109 mg/dL (80-110); HEMOLYSIS < 15 (0-50); Potassium 4.5 mmol/L (3.4-5.1); Sodium 138 mmol/L (137-145)
[2024-10-16 16:17] LABS: Prostate Specific Antigen 0.626 ng/mL (0.10-4.00)
[2024-10-16 20:07] LABS: Hemoglobin A1C% w Est Avg Glu 5.8 % (4.0-6.0)
== END ==
PROVIDERS: PCP Internal Medicine; Referring Provider Internal Medicine; Visit Provider Internal Medicine
DX: E78.2 Mixed hyperlipidemia (principal); R73.01 Impaired fasting glucose; I26.99 Other pulmonary embolism without acute cor pulmonale
CPT/HCPCS: 36415; 80048; 83036; 84153; 85027; 85598; 85613

== ENCOUNTER → 2025-04-20 14:18 | Outpatient (CLI) | payer MEDICARE, OTHER, SELFPAY ==
[2023-04-25 14:56] VITALS: BMI 31.2
[2025-04-20 15:10] LABS: Hematocrit 40.6 % (41-53); Hemoglobin 14.1 g/dL (13.5-17.5); Mean Corpuscular HGB Conc 34.7 % (30-36); Mean Corpuscular Hemoglobin 30.7 PG (26-34); Mean Corpuscular Volume 88.4 fL (80-100); Platelet Count 248 X10^3/uL (150-400)
[2025-04-20 15:18] LABS: Hemoglobin A1C% w Est Avg Glu 5.2 % (4.0-6.0)
[2025-04-20 15:38] LABS: Blood Urea Nitrogen 24 mg/dL (9-20); Calcium 9.6 mg/dL (8.4-10.2); Carbon Dioxide 23 mmol/L (22-32); Chloride 104 mmol/L (98-107); Cholesterol 161 mg/dL (140-199); Estimated Glomerular Filt Rate > 60 mL/min (>60); Glucose 77 mg/dL (70-99); HDL Cholesterol 63 mg/dL (40-60); HEMOLYSIS < 15 (0-50); Potassium 4.4 mmol/L (3.4-5.1); Sodium 140 mmol/L (137-145); Triglycerides 177 mg/dL (35-150)
== END ==
PROVIDERS: PCP Internal Medicine; Referring Provider Internal Medicine; Visit Provider Internal Medicine
DX: R73.01 Impaired fasting glucose (principal); E78.2 Mixed hyperlipidemia; Z86.711 Personal history of pulmonary embolism
CPT/HCPCS: 36415; 80048; 80061; 83036; 84450; 85027